=== PATIENT | female | born 1945 | race Hispanic/Latino ===

== ENCOUNTER 2017-10-26 11:30 | Inpatient (IN) | payer MEDICARE, OTHER ==
[2017-10-26 11:33] VITALS: BMI 23.2
[2017-10-26] MEDS ORDERED: Magnesium Sulfate 2 GM in Sodium Chloride 0.9% 100 ML IVPB ONE (11:36)
[2017-10-26] MEDS: Albuterol-Ipratrop 3 mg / 0.5 (3 ml) UD IH SCH ×4 (11:46→14:31)
--- NOTE | 2017-10-26 11:46 | ED PDOC ---
Arrival/HPI - General Time Seen by Provider: 10/26/17 11:35 Historian: Patient, EMS - History of Present Illness Narrative History of Present Illness (Text): 10/26/17 11:36 Desire Villanueva is a 71 year old female, whose past medical history includes COPD, hypertension, pneumonia, right shoulder rotator cuff surgery, former smoker and hyperlipidemia, who presents to the Emergency department via EMS complaining of shortness of breath since 3 days. As per ALS, patient was found at home on her home-oxygen at 90-92% stat. Patient was administered duoneb x1 and solu medrol by ALS. Patient states she has been experiencing shortness of breath for the past 3 days but the symptoms worsened since yesterday. Patient informs associated chest pain worsened with coughing with phlegm. Patient denies headache, fever, chills, nausea, vomiting, diarrhea, abdominal pain, dizziness, lightheadedness or any other complaints. PCP: Dr. Zimmer Time/Duration: < week Symptom Onset: Gradual Symptom Course: Worsening Activities at Onset: Light Context: Home Past Medical History - Provider Review Nursing Documentation Reviewed: Yes - Infectious Disease Hx of Infectious Diseases: None - Tetanus Immunization Tetanus Immunization: Unknown - Cardiac Hx Hypertension: Yes - Pulmonary Hx Chronic Obstructive Pulmonary Disease (COPD): Yes - Neurological Hx Neurological Disorder: No - HEENT Hx HEENT Disorder: No - Renal Hx Renal Disorder: No - Endocrine/Metabolic Hx Endocrine Disorders: No - Hematological/Oncological Hx Blood Disorders: No - Integumentary Hx Dermatological Disorder: No - Musculoskeletal/Rheumatological Hx Falls: No - Gastrointestinal Hx Gastrointestinal Disorders: Yes - Genitourinary/Gynecological Hx Genitourinary Disorders: No - Psychiatric Hx Psychophysiologic Disorder: No Hx Substance Use: No - Surgical History Hx Appendectomy: Yes Other/Comment: Left:artifical wrist, 2 benign breast tumor,RIGHT ROTATOR CUFF SX - Anesthesia Hx Anesthesia: Yes Hx Anesthesia Reactions: No Hx Malignant Hyperthermia: No - Suicidal Assessment Feels Threatened In Home Enviroment: No Family/Social History - Physician Review Nursing Documentation Reviewed: Yes Family/Social History: Unknown Family HX Smoking Status: Former Smoker Hx Alcohol Use: No Hx Substance Use: No Hx Substance Use Treatment: No Allergies/Home Meds Allergies/Adverse Reactions: Allergies latex Allergy (Intermediate, Uncoded 08/21/15 16:38) RASH pt stated that she had procedure done and had severe rash to bilateral arms Home Medications: Home Meds Medication Instructions Recorded Confirmed Simvastatin 10 mg PO HS 05/17/15 10/26/17 ALPRAZolam [Xanax] 0.25 mg PO DAILY 10/26/17 10/26/17 Albuterol/Ipratropium [Duoneb 3 1 ea IH PRN PRN 10/26/17 10/26/17 MG/3 Ml-0.5 MG/3 Ml 3 Ml] Aspirin [Aspirin Chewable] 81 mg PO DAILY 10/26/17 10/26/17 Clonidine HCl [Catapres] 0.1 mg PO DAILY 10/26/17 10/26/17 Fluticasone/Salmeterol 250/50 1 dsk IH PRN PRN 10/26/17 10/26/17 [Advair Diskus] Gabapentin [Neurontin] 300 mg PO TID 10/26/17 10/26/17 Meclizine [Meclizine*] 25 mg PO DAILY 10/26/17 10/26/17 Pramipexole Di-HCl [Pramipexole 0.25 mg PO DAILY 10/26/17 10/26/17 Dihydrochloride] Tiotropium [place] Inhaler 2.5 mcg INH DAILY 10/26/17 10/26/17 [Spiriva Inhalation Handihaler Device] Valsartan/Hydrochlorothiazide 160 mg PO DAILY 10/26/17 10/26/17 [Valsartan-Hctz 160-12.5 mg Tab] Review of Systems - Physician Review All systems were reviewed & negative as marked: Yes - Review of Systems Constitutional: Normal. absent: Fevers, Night Sweats Eyes: Normal ENT: Normal Respiratory: SOB, Cough (with phlegm ) Cardiovascular: Chest Pain Gastrointestinal: Normal. absent: Abdominal Pain, Diarrhea, Nausea, Vomiting Genitourinary Female: Normal Musculoskeletal: Normal Skin: Normal Neurological: Normal. absent: Dizziness Endocrine: Normal Hemo/Lymphatic: Normal Psychiatric: Normal Physical Exam Vital Signs Reviewed: Yes Vital Signs Temp Pulse Resp BP Pulse Ox 10/26/17 13:30 108 H 20 98/82 L 100 10/26/17 13:10 100 10/26/17 13:01 121 H 19 80/67 L 100 10/26/17 12:56 127 H 10/26/17 12:54 127 H 10/26/17 12:00 120 H 19 113/65 97 10/26/17 11:40 99.2 F 123 H 19 99/74 L 98 Temperature: Afebrile Blood Pressure: Hypotensive Pulse: Tachycardic Respiratory Rate: Normal Appearance: Positive for: Well-Appearing, Non-Toxic Pain Distress: None Mental Status: Positive for: Alert and Oriented X 3 - Systems Exam Head: Present: Atraumatic, Normocephalic Pupils: Present: PERRL Extroacular Muscles: Present: EOMI Conjunctiva: Present: Normal Mouth: Present: Moist Mucous Membranes Neck: Present: Normal Range of Motion Respiratory/Chest: Present: Wheezes (diffuse wheezing ), Decreased Breath Sounds (decreased breath sounds bilaterally ), Tachypneic, Other (decrease air entry ) Cardiovascular: Present: Normal S1, S2, Tachycardic. No: Murmurs Abdomen: Present: Normal Bowel Sounds. No: Tenderness, Distention, Peritoneal Signs Back: Present: Normal Inspection Upper Extremity: Present: Normal Inspection. No: Cyanosis, Edema Lower Extremity: Present: Normal Inspection. No: Edema Neurological: Present: GCS=15, CN II-XII Intact. No: Speech Normal (speaking in short sentences due to shortness of breath ) Skin: Present: Warm, Dry, Normal Color. No: Rashes Psychiatric: Present: Alert, Oriented x 3, Normal Insight, Normal Concentration Medical Decision Making ED Course and Treatment: 10/26/17 11:40 Impression: 71 year old female presents to the Emergency department for shortness of breath and associated chest pain. Differential Diagnosis included but are not limited to: COPD exacerbation r/o PNA r/o Influenza Plan: -- ABG -- VBG -- EKG -- Chest X-ray -- Blood Culture -- Influenza A B Stat -- Albuterol -- Toradol -- IV Fluids -- Reassess and disposition Prior Visits: Notes and results from previous visits were reviewed. On 12/20/15 patient was seen in the Emergency department for productive coughing with shortness of breath. Patient was admitted to the hospital for further observation. Progress Notes: 10/26/17 11:50 EKG: Ordered, reviewed, and independently interpreted the EKG. Rate : 123 BPM Rhythm : Sinus Tachycardia. Interpretation : No ST-segment elevations or depressions, no T-wave inversions, normal intervals. 10/26/17 12:34 Chest X-ray reviewed by radiologist, shows no active disease. 10/26/17 12:35 Patient continues to be shortness of breathe with wheezing. Lung exam unchanged with diffuse wheezing and decreased air entry. Speaking in short sentences. Will attempt BiPap. 10/26/17 13:01 Patient is improving on BiPap. Wheezing has decreased. Air intake is better. Blood pressure decreased but now has improved to baseline arrival blood pressure. ABG reviewed. Case was discussed with Dr. Zimmer who will place the patient under her service. - Critical Care Critical Care Minutes: 60 minutes - Lab Interpretations Lab Results: 10/26/17 11:40 10/26/17 11:40 Lab Results 10/26/17 12:47: Influenza Typ A,B (EIA) Pos for influenza a H 10/26/17 11:40: Sodium 134, Chloride 97 L, Potassium 3.9, Carbon Dioxide 28, Anion Gap 13, BUN 21, Creatinine 1.1, Est GFR ( Amer) 59, Est GFR (Non- Af Amer) 49, Random Glucose 103, Calcium 9.1, Lactate Dehydrogenase 663, Total Creatine Kinase 39, Troponin I 0.12 D, NT-Pro-B Natriuret Pep 5350 H 10/26/17 11:40: pO2 44, VBG pH 7.31 L, VBG pCO2 59.0, VBG HCO3 29.7 H, VBG Total CO2 31.5 H, VBG O2 Sat (Calc) 83.5 H, VBG Base Excess 2.0, VBG Potassium 3.8, Sodium 133.0, Chloride 96.0 L, Glucose 102, Lactate 1.8, FiO2 21.0, Venous Blood Potassium 3.8 10/26/17 11:40: WBC 9.5 D, RBC 4.33, Hgb 12.9, Hct 40.6, MCV 93.8, MCH 29.8, MCHC 31.8, RDW 13.3, Plt Count 231, MPV 11.6 H, Gran % 56.8, Lymph % (Auto) 28.1 , [place] % (Auto) 13.0 H, Eos % (Auto) 2.0, Baso % (Auto) 0.1, Gran # 5.38, Lymph # 2.7, [place] # 1.2 H, Eos # 0.2, Baso # 0.01 I have reviewed the lab results: Yes Interpretation: Abnormal lab values - RAD Interpretation Radiology Orders: 10/26/17 11:36 CHEST PORTABLE [RAD] Stat Food Services Director: Radiologist - EKG Interpretation Interpreted by ED Physician: Yes Type: 12 lead EKG - Medication Orders Current Medication Orders: Albuterol/Ipratropium (Duoneb 3 Mg/0.5 Mg (3 Ml) Ud) 3 ml IH Q15M CATINA Stop: 10/26/17 14:16 Sodium Chloride (Sodium Chloride 0.9%) 1,000 mls @ 100 mls/hr IV .Q10H CATINA Last Admin: 10/26/17 11:54 Dose: 100 mls/hr eMAR Start Stop Document 10/26/17 11:54 LA (Rec: 10/26/17 11:54 LA [id number]) Intravenous Solution Start Date 10/26/17 Start Time 11:54 Discontinued Medications Albuterol Sulfate (Albuterol 0.083% Inhal Eli (2.5 Mg/3 Ml) Ud) 2.5 mg IH STAT STA Stop: 10/26/17 13:35 Last Admin: 10/26/17 13:42 Dose: 2.5 mg Albuterol/Ipratropium (Duoneb 3 Mg/0.5 Mg (3 Ml) Ud) 3 ml IH Q15M CATINA Stop: 10/26/17 12:16 Last Admin: 10/26/17 12:17 Dose: 3 ml Magnesium Sulfate 2 gm/ Sodium (Chloride) 104 mls @ 102 mls/hr IVPB ONCE ONE Stop: 10/26/17 12:37 Last Admin: 10/26/17 11:53 Dose: 102 mls/hr eMAR Start Stop Document 10/26/17 11:53 LA (Rec: 10/26/17 11:54 LA [id number]) Intravenous Solution Start Date 10/26/17 Start Time 11:53 Ketorolac Tromethamine (Toradol) 30 mg IVP STAT STA Stop: 10/26/17 11:40 Last Admin: 10/26/17 11:46 Dose: 30 mg MAR Pain Assessment Document 10/26/17 11:46 LA (Rec: 10/26/17 11:48 LA [id number]) Pain Reassessment Is this a pain reassessment? No Sleep Is patient sleeping during reassessment? No Presence of Pain Presence of Pain Yes Pain Scale Used Pain Scale Used Numeric Location Pain Location Body Site Chest Description Description Sharp Intensity of Pain at present 10 IVP Administration Document 10/26/17 11:46 LA (Rec: 10/26/17 11:48 LA [id number]) Charges for Administration # of IVP Administrations 1 Re-Assess: JOEL Pain Assessment Document 10/26/17 12:46 SRE (Rec: 10/26/17 13:43 SRE [facility] [id number] Pain Reassessment Is this a pain reassessment? Yes Sleep Is patient sleeping during reassessment? No Presence of Pain Presence of Pain Yes Pain Scale Used Pain Scale Used Numeric Oseltamivir Phosphate (Tamiflu Cap) 75 mg PO STAT STA PRN Reason: Protocol Stop: 10/26/17 13:22 Last Admin: 10/26/17 13:31 Dose: 75 mg - Scribe Statement The provider has reviewed the documentation as recorded by the Nancieibdavid Mccurdy. All medical record entries made by the Nancieibdavid were at my direction and personally dictated by me. I have reviewed the chart and agree that the record accurately reflects my personal performance of the history, physical exam, medical decision making, and the department course for this patient. I have also personally directed, reviewed, and agree with the discharge instructions and disposition. Disposition/Present on Arrival - Present on Arrival Any Indicators Present on Arrival: No History of DVT/PE: No History of Uncontrolled Diabetes: No Urinary Catheter: No History Surgical Site Infection Following: None - Disposition Have Diagnosis and Disposition been Completed?: Yes Diagnosis: COPD (chronic obstructive pulmonary disease), Influenza Disposition: HOSPITALIZED Disposition Time: 13:00 Patient Plan: Admission Patient Problems: Current Active Problems Problem Status Onset COPD (chronic obstructive pulmonary disease) Acute Influenza Acute Condition: GUARDED
[2017-10-26] MEDS: Sodium Chloride 0.9% 1,000 ML IV SCH ×2 (11:54→22:17)
[2017-10-26 11:59] LABS: VENOUS BLOOD GAS PO2 44 mm/Hg (30-55); VENOUS BLOOD PH 7.31 (7.32-7.43)
[2017-10-26 12:00] LABS: BASO # 0.01 K/mm3 (0.0-2.0); BASO % 0.1 % (0.0-3.0); EOS # 0.2 (0.0-0.7); GRAN # 5.38 (1.4-6.5); GRAN % 56.8 % (50.0-68.0); HEMOGLOBIN 12.9 g/dL (12.0-16.0); LYMPH # 2.7 (1.2-3.4); LYMPH % 28.1 % (22.0-35.0); MEAN CELL VOLUME 93.8 fl (80.0-105.0); MEAN CORPUSCULAR HEMOGLOBIN 29.8 pg (25.0-35.0); MEAN CORPUSCULAR HGB CONC 31.8 g/dl (31.0-37.0); MEAN PLATELET VOLUME 11.6 fl (7.0-11.0); MONO # 1.2 (0.1-0.6); RBC 4.33 10^6/uL (3.5-6.1); RED CELL DISTRIBUTION WIDTH 13.3 % (11.5-14.5); WHITE BLOOD COUNT 9.5 10^3/ul (4.5-11.0)
[2017-10-26 12:10] LABS: CALCIUM 9.1 mg/dL (8.4-10.5)
[2017-10-26 12:21] LABS: TROPONIN I 0.12 ng/mL
--- NOTE | 2017-10-26 12:32 | RAD ---
HISTORY: sob r/o pna COMPARISON: 12/24/2015 FINDINGS: LUNGS: No active pulmonary disease. PLEURA: No significant pleural effusion identified, no pneumothorax apparent. CARDIOVASCULAR: Normal. OSSEOUS STRUCTURES: No significant abnormalities. VISUALIZED UPPER ABDOMEN: Normal. OTHER FINDINGS: None. IMPRESSION: No active disease.
[2017-10-26] MEDS ORDERED: Albuterol 0.083% Inhal Sol (2.5 mg/3 mL) UD IH STA (13:34)
[2017-10-26] MEDS ORDERED: Albuterol 0.083% Inhal Sol (2.5 mg/3 mL) UD ONE (13:42)
[2017-10-26 13:52] LABS: ARTERIAL BLOOD GAS HCO3 22.6 mmol/L (21-28); ARTERIAL BLOOD GAS HEMOGLOBIN 10.6 g/dL (11.7-17.4); ARTERIAL BLOOD GAS O2 CAPACITY 15.1 mL/dl (16-24); ARTERIAL BLOOD GAS O2 CONTENT 14.9 ML/dl (15-23); ARTERIAL BLOOD GAS O2 SAT 98.5 % (95-98); ARTERIAL BLOOD GAS PCO2 46 mm/Hg (35-45)
[2017-10-26] MEDS ORDERED: Oxycodone/Acetaminophen 5/325 mg Tab PO SCH (14:45)
[2017-10-26] MEDS ORDERED: Tiotropium 18 mcg Cap For Inhalation INH SCH (14:45)
[2017-10-26] MEDS ORDERED: Non Formulary Medication (Valsartan/Hydrochlorothiazide [Valsartan-Hctz 160-12.5 Mg Tab] 1 PO SCH (14:45)
[2017-10-26] MEDS ORDERED: Pneumococcal 23-Valent Vaccine IM ONE (15:05)
--- NOTE | 2017-10-26 18:18 | CARD ---
APPROVED REPORT EKG Measurement Heart [id number] <Conclusion> Sinus tachycardia Possible Left atrial enlargement Borderline ECG
[2017-10-26] MEDS: Levalbuterol 1.25 MG/3 ML Inhal Soln UD IH SCH (20:12)
[2017-10-26] MEDS ORDERED: Non Formulary Medication (Simvastatin [Simvastatin] 10 MG) PO SCH (22:00)
[2017-10-26] MEDS: MethylPREDNISolone 40 mg Vial IV SCH (22:18)
[2017-10-26] MEDS: Oxycodone/Acetaminophen 5/325 mg Tab PO SCH (23:17)
[2017-10-27] MEDS: Levalbuterol 1.25 MG/3 ML Inhal Soln UD IH SCH ×4 (02:16→19:49)
--- NOTE | 2017-10-27 05:14 | HP ---
HISTORY OF PRESENT ILLNESS: The patient is 71-year-old, known to me, was recently seen for bilateral leg rashes. She states she started cough and congestion 3 days ago, has been getting worse and today, she was to the point was not able to catch breath, so called ambulance and she was brought to emergency room. At home, her oxygen was 90% according to ALS. The patient states she was getting nebulizer treatment. In the field, she received IV Solu-Medrol and nebulizer treatment. No history of fever or chills. No dizziness. Does complain of feeling lightheaded, though also complain of some chest discomfort that get worse on coughing. The cough is productive. PAST MEDICAL HISTORY: Significant for: 1. COPD. 2. Hypertension. 3. Hyperlipidemia. 4. History of hot flashes. 5. Recent right shoulder rotator cuff surgery. 6. History of peptic ulcer disease. SOCIAL HISTORY: She is . She lives with her . Heavy smoker in the past. ALLERGIES: SHE IS ALLERGIC TO FLU VACCINE AND LATEX. MEDICATION AT HOME: She is on prednisone 20 mg daily. She is on Percocet as needed. She is on valsartan 160 daily, Spiriva daily, simvastatin 10 mg at bedtime, promethazine with codeine, Neurontin 300 three times a day, Advair 250/50 one puff twice a day, clonidine 0.1 daily, aspirin 81 daily, Xanax 0.25 daily. REVIEW OF SYSTEMS: Significant for cough, congestion, shortness of breath, and some chest discomfort. PHYSICAL EXAMINATION: GENERAL: She is awake, alert, oriented, mild shortness of breath. VITAL SIGNS: She is afebrile, pulse rate 97, respiration 20, blood pressure 114/69. LUNGS: Bilateral fair airflow with expiratory rhonchi bilaterally, diffuse. HEART: S1, S2 audible. ABDOMEN: Soft, nontender. No rebound. No guarding. NEUROLOGIC: The patient is awake, alert, oriented, able to communicate. Has limited mobility on the right rotator cuff because of recent surgery. Bilateral leg, no edema. LABORATORY EXAMINATION: WBC is 9.5, hemoglobin 12.9, hematocrit 40.6, platelet of 231. Chemistry, sodium 134, potassium 3.9, chloride 97, CO2 28, BUN 21, creatinine 1.1, blood sugar of 103. LFTs are within normal limits. BNP 5350. Flu test is positive. X-ray of chest is unremarkable. ASSESSMENT AND PLAN: 1. Viral syndrome. 2. Asthmatic bronchitis. 3. Bronchospasm. 4. Chronic obstructive pulmonary disease exacerbation. 5. History of hypertension. PLAN: We will start the patient on Tamiflu. Will continue nebulizer treatment. We will give her steroids; also resume her usual medication and we will follow up this patient in a.m. Cruz Zimmer MD
[2017-10-27] MEDS: Oxycodone/Acetaminophen 5/325 mg Tab PO SCH ×4 (06:10→23:34)
[2017-10-27] MEDS: MethylPREDNISolone 40 mg Vial IV SCH ×3 (06:10→21:14)
[2017-10-27] MEDS: Tiotropium 18 mcg Cap For Inhalation INH SCH (10:28)
[2017-10-27] MEDS: cefTRIAXone 1 gm 1 GM/100 ML BAG IVPB SCH (10:29)
[2017-10-27] MEDS: Azithromycin 500MG/NS 250ml 500 MG/250 ML BAG IVPB SCH (10:30)
[2017-10-27] MEDS ORDERED: Levalbuterol 0.63 MG/3 ML Inhal Soln UD IH PRN (12:22)
[2017-10-27] MEDS: Promethazine/Cod 6.25mg-10mg/5ml Syr UD PO PRN ×2 (12:53→21:23)
[2017-10-27] MEDS: Levalbuterol 0.63 MG/3 ML Inhal Soln UD IH SCH ×2 (13:24→19:49)
--- NOTE | 2017-10-27 19:13 | PN ---
DATE: SUBJECTIVE: The patient is a 71-year-old seen and examined, lying in bed, seemed to be comfortable, still have cough, congestion, shortness of breath, currently on BiPAP. PHYSICAL EXAMINATION VITAL SIGNS: She is afebrile. Pulse 95, respirations 22, blood pressure 177/82. LUNGS: Bilateral expiratory rhonchi, diffuse, scattered. HEART: S1, S2 audible. ABDOMEN: Soft, nontender. No rebound. No guarding. NEUROLOGIC: The patient is awake, alert, oriented, communicative, moves all extremities. LABORATORY EXAMINATION: BNP 5350. Flu test is positive. ASSESSMENT AND PLAN: 1. Viral syndrome. 2. Chronic obstructive pulmonary disease exacerbation. 3. Bronchospasm. 4. Hypertension. 5. Hyperlipidemia. Currently, patient is on clonidine. She is on losartan 100 mg daily. We will start her on Norvasc 5 mg daily. She is on IV steroid. She is on nebulizer treatment. She is on Tamiflu 75 b.i.d. We will continue her on Xopenex every 6 hours and every 12 or as needed. Cruz Zimmer MD
--- NOTE | 2017-10-27 20:50 | CON ---
DATE: 10/27/2017 PULMONARY CONSULTATION We were asked by the attending, Dr. Zimmer, roadway technician to evaluate and treat this 71-year-old woman who was admitted to [facility] with marked shortness of breath and deterioration in her pulmonary status, also cough, also testing positive for Influenza A. HISTORY OF PRESENT ILLNESS: The patient states that she started feeling worse in the last few days. She started feeling congested. She also complained of bilateral leg rashes. The cough and congestion produced yellow and green sputum. Her shortness of breath has increased markedly on the day of admission. She called an ambulance. Upon arrival of EMS, her pulse oximetry was 90. In the emergency room, she received Solu-Medrol nebulizer treatments. She denied fever. No dizziness. Positive productive cough. PAST MEDICAL HISTORY: Positive for chronic obstructive pulmonary disease, hypertension, and hyperlipidemia. SOCIAL HISTORY: The patient is a heavy smoker in the past, quit. No alcohol. No IV drug use. FAMILY HISTORY: HTN, CAD ALLERGIES: SHE IS ALLERGIC TO FLU VACCINE AND LATEX. HOME MEDICATIONS: Include prednisone 20 mg a day, Percocet, valsartan, Spiriva, promethazine with codeine, Neurontin, Advair, clonidine, and Xanax. REVIEW OF SYSTEMS: Conducted by reviewing all sources. RESPIRATORY: See history of present illness. CARDIOVASCULAR: No history of chest pain. No palpitations. GENITOURINARY: No dysuria or hematuria. GASTROINTESTINAL: No recent abdominal pain, vomiting, or diarrhea. The rest of the systems were reviewed and found to be negative. PHYSICAL EXAMINATION: GENERAL: She is awake, alert, in mild respiratory difficulty. VITAL SIGNS: Afebrile. Pulse is 98, respirations 20, blood pressure 114/69. HEAD, EARS, NOSE, AND THROAT: Atraumatic, normocephalic. NECK: Supple with no jugular vein distention. CARDIOVASCULAR: S1, S2. No S3. PULMONARY: Diminished breath sounds bilaterally with few rhonchi and expiratory wheezes. GASTROINTESTINAL: Soft and nontender. No organomegaly. : Within normal limits NEUROLOGIC: Limited at present time. SKIN: Clear with no skin rashes. No cyanosis. LABORATORY DATA: Influenza rapid test is positive for Influenza A. Her WBCs are 9.5, hemoglobin 12.9, platelet count 231,000, and her chemistries are normal. BNP is elevated at 5350. ASSESSMENT: 1. Influenza A disease. 2. Exacerbation of severe chronic obstructive pulmonary disease. 3. Bronchospasm. PLAN: The patient was started on Tamiflu as well as intravenous antibiotics. She was started on intravenous steroids and nebulizer treatment. Due to findings of respiratory insufficiency, she was placed on BiPAP which she feels is beneficial. We will continue with BiPAP for the present settings, continue his current antibiotics. I have personally reviewed her yesterday's chest x-ray, and it is completely clear. There are no infiltrates, no effusions, so there is no pneumonia. Cruzito Anglin MD MTDD
[2017-10-27] MEDS: Sodium Chloride 0.9% 1,000 ML IV SCH (21:13)
[2017-10-28] MEDS: Levalbuterol 0.63 MG/3 ML Inhal Soln UD IH SCH ×4 (01:03→19:33)
[2017-10-28] MEDS: Promethazine/Cod 6.25mg-10mg/5ml Syr UD PO PRN ×4 (04:43→23:32)
[2017-10-28] MEDS: Oxycodone/Acetaminophen 5/325 mg Tab PO SCH ×4 (05:23→23:29)
[2017-10-28] MEDS: MethylPREDNISolone 40 mg Vial IV SCH ×3 (05:23→21:06)
[2017-10-28] MEDS: Sodium Chloride 0.9% 1,000 ML IV SCH ×4 (06:53→20:06)
[2017-10-28] MEDS: Levalbuterol 1.25 MG/3 ML Inhal Soln UD IH SCH ×4 (07:23→19:35)
[2017-10-28] MEDS: Tiotropium 18 mcg Cap For Inhalation INH SCH (09:16)
[2017-10-28] MEDS: cefTRIAXone 1 gm 1 GM/100 ML BAG IVPB SCH (11:20)
[2017-10-28] MEDS: Azithromycin 500MG/NS 250ml 500 MG/250 ML BAG IVPB SCH (12:37)
--- NOTE | 2017-10-28 14:23 | PN ---
DATE: 10/28/2017 PULMONARY PROGRESS NOTE SUBJECTIVE: The patient was seen and examined at bedside. She is off BiPAP. She is still uncomfortable, coughing constantly with some shortness of breath even at rest and on minimal exertion. She is on antibiotics as well as antivirals, azithromycin, ceftriaxone, and oseltamivir. PHYSICAL EXAMINATION: VITAL SIGNS: Temperature 97.5, pulse 90, respirations 20. Her oxygen saturation was recorded on BiPAP earlier and was 100%. Blood pressure 170/85. HEAD: Normocephalic and atraumatic. NECK: Supple with no jugular vein distentions. CARDIOVASCULAR: S1 and S2. No S3. Regular. PULMONARY: Scattered coarse rhonchi. Prolonged expiration, end-expiratory wheezes. GASTROINTESTINAL: Soft, nontender. No organomegaly. EXTREMITIES: No edema. SKIN: Clear with no skin rashes, no cyanosis. NEUROLOGIC: No focal deficits. LABORATORY DATA: No new laboratory data. ASSESSMENT: 1. Exacerbation of severe chronic obstructive pulmonary disease. 2. Respiratory insufficiency. 3. Influenza A positive. 4. Bronchospasm. PLAN: The patient has improved slightly. I reviewed her chest x-ray, it is completely clear. There are no infiltrates. We will continue her current antibiotics and antivirals, continue with aerosol therapy and BiPAP. Cruziot Anglin MD
[2017-10-29] MEDS: Sodium Chloride 0.9% 1,000 ML IV SCH ×4 (00:08→19:45)
[2017-10-29] MEDS: Levalbuterol 0.63 MG/3 ML Inhal Soln UD IH SCH ×4 (01:02→21:31)
--- NOTE | 2017-10-29 01:05 | CON ---
DATE: 10/28/2017 The patient seen in room 275 bed 2. CHIEF COMPLAINT: Cough times several days. HISTORY OF PRESENT ILLNESS: This is a 71-year-old female with chronic obstructive lung disease, hypertension, smoker, asthma, arthritis, spastic colon who has had a right breast lumpectomy, right shoulder cuff surgery, appendectomy, who is ALLERGIC WITH INFLUENZA VACCINE, who is admitted now with generalized aches and pains and low grade fevers, cough. No abdominal pain, but she is having diarrhea and she was found to be influenza positive, Infectious Disease consultation is requested. REVIEW OF SYSTEM: Reveals the patient did not have any fevers, no chills. He is having shortness of breath, cough or cough is nonproductive. There is a pleuritic chest pain with it and no abdominal pain. There is diarrhea. No dysuria, frequency. PAST MEDICAL HISTORY: Significant for COPD, hypertension, smoker, asthma, arthritis, spastic colon. PAST SURGICAL HISTORY: Significant for right breast lumpectomy, right shoulder cuff, and appendectomy. ALLERGIES: THE PATIENT IS ALLERGIC TO INFLUENZA VACCINE. MEDICATIONS: At home include; the patient to be on prednisone, oxycodone, although the patient denies being on prednisone, clonidine, and aspirin. PHYSICAL EXAMINATION: GENERAL: The patient is in bed. VITAL SIGNS: Temperature of 98, heart rate of 108 on admission, respiratory rate of 21 and it was up to 22, and blood pressure is 178/80. HEENT: Unremarkable. NECK: Supple. LUNGS: Have decreased breath sounds. HEART: Normal S1, S2. ABDOMEN: Soft, nontender. No organomegaly. No rebound or guarding. No masses. LABORATORY EXAMINATION: Reveals the patient's white count of 9.5, hemoglobin of 12, platelets of 231. Chemistries reveals the patient has a BUN of 21, creatinine of 1.1. BNP is 5350 and influenza serology is positive. Microbiology reveals the blood cultures are no growth and has chest x-ray is negative and QTC is noted to be at 440. ASSESSMENT AND PLAN: This is a 71-year-old female with a chronic obstructive lung disease, hypertension, smoker, asthma, arthritis, spastic colon, with: 1. Sepsis with positive influenza A, although the chest x-ray is negative and the patient will check on the procalcitonin on Rocephin, Zithromax, and Tamiflu. We will check on the sputum culture and stool Clostridium difficile and toxin and urine for Legionella antigen and we will make further recommendations upon availability of initial results. Mario Coyle MD
[2017-10-29] MEDS: MethylPREDNISolone 40 mg Vial IV SCH ×3 (05:09→21:28)
[2017-10-29] MEDS: Oxycodone/Acetaminophen 5/325 mg Tab PO SCH ×4 (05:09→23:21)
[2017-10-29] MEDS: Promethazine/Cod 6.25mg-10mg/5ml Syr UD PO PRN ×2 (05:20→11:29)
[2017-10-29] MEDS: Levalbuterol 1.25 MG/3 ML Inhal Soln UD IH SCH ×3 (07:31→21:31)
[2017-10-29] MEDS: Tiotropium 18 mcg Cap For Inhalation INH SCH (09:36)
[2017-10-29] MEDS: cefTRIAXone 1 gm 1 GM/100 ML BAG IVPB SCH (09:38)
[2017-10-29] MEDS: Azithromycin 500MG/NS 250ml 500 MG/250 ML BAG IVPB SCH (10:50)
[2017-10-29 12:31] LABS: BASO # 0.03 K/mm3 (0.0-2.0); BASO % 0.3 % (0.0-3.0); GRAN # 9.53 (1.4-6.5); GRAN % 81.7 % (50.0-68.0); HEMOGLOBIN 10.1 g/dL (12.0-16.0); LYMPH # 0.8 (1.2-3.4); LYMPH % 7.2 % (22.0-35.0); MEAN CORPUSCULAR HGB CONC 30.2 g/dl (31.0-37.0); MEAN PLATELET VOLUME 11.2 fl (7.0-11.0); MONO # 1.3 (0.1-0.6); MONO % 10.8 % (1.0-6.0); RBC 3.48 10^6/uL (3.5-6.1); RED CELL DISTRIBUTION WIDTH 13.5 % (11.5-14.5); WHITE BLOOD COUNT 11.7 10^3/ul (4.5-11.0)
[2017-10-29 12:43] LABS: BLOOD UREA NITROGEN 17 mg/dL (7-21); CALCIUM 8.5 mg/dL (8.4-10.5); GFR AFRICAN-AMERICAN > 60; GFR NON-AFRICAN AMERICAN > 60
--- NOTE | 2017-10-29 13:03 | PN ---
DATE: 10/29/2017 PULMONARY PROGRESS NOTE SUBJECTIVE: The patient has had influenza and she was feeling congested. She has a history of COPD. She was seen by Dr. Delgadillo as an outpatient. She was short of breath and came into the hospital via ambulance with EMS. She was given corticosteroids and bronchodilators. She had a productive cough. PAST SURGICAL HISTORY: COPD as described above, hypertension, and hyperlipidemia. SOCIAL HISTORY: She was a heavy smoker, but finally quit. There is no other problems of note. No drug abuse. No travel history. No occupational exposure. ALLERGIES: SHE IS ALLERGIC TO FLU VACCINE AND LATEX. HOME MEDICATIONS: Include Percocet, valsartan, Spiriva, inhaled bronchodilator, codeine, Neurontin, Advair, clonidine, and Xanax. REVIEW OF SYSTEMS: Complete review of systems, she has COPD, she has multiple respiratory infections such that consistent with chronic bronchitis. She has no recent abdominal problems. She has been regularly by Dr. Delgadillo with no acute current problems. PHYSICAL EXAMINATION: VITAL SIGNS: Stable with a temperature of 98.6, respiratory rate 20, and blood pressure 120/70. HEENT: Normocephalic and atraumatic. NECK: Supple. No JVD. No lymphadenopathy. CARDIOVASCULAR: Regular rate and rhythm. S1 and S2 without murmur, gallop, or rub. PULMONARY: Scattered rales, rhonchi, and wheezes throughout. Both lung drummond decreased breath sounds at the bases. ABDOMEN: Soft. Bowel sounds normoactive without mass, guarding, rebound or organomegaly. EXTREMITIES: Reveal no clubbing, cyanosis or edema. NEUROLOGIC: Reveals no focal findings. Motor, sensory, and coordination normal. No lymphadenopathy is appreciated. No Homans' sign is appreciated. SIGNIFICANT STUDIES AND LABORATORY STUDIES: No infiltrates on chest x-ray. Laboratory studies show positive influenza A. White count 9,000, hemoglobin 12.9, and platelet count 231,000. BNP was 5350. Urine appears normal. EKG sinus tachycardia. No acute changes. ASSESSMENT AND PLAN: The patient was started on Tamiflu and antibiotics. She was given vigorous bronchodilator treatments with corticosteroids. She also received some BiPAP, as her physicians were afraid that her respiratory status would fail. She started improve slowly and became better in the immediate future. Today, she is feeling better still on the same medications. BiPAP was necessary. Antibiotic for concurrent infection. We will continue to evaluate and give her the appropriate, while she was here in the hospital. Tomorrow her private landscape crew member Dr. Delgadillo will return and he will be facts regarding her current status. We will be able to follow with her and make sure that things will improve and make sure the long-term abnormalities or sequelae from the acute bronchospasm and flu do not become apparent. He will be once again able to ascertain her general status since she is well-known to him in the past. Thank you for the opportunity to care for Ms. Desire Villanueva and we will follow closely with you. Billy Zelaya MD MTDD
--- NOTE | 2017-10-29 14:14 | PN ---
DATE: 10/29/2017 SUBJECTIVE: The patient is in bed, in no acute distress, nontoxic. The patient is still having cough and she has had no fevers. PHYSICAL EXAMINATION: VITAL SIGNS: Temperature is 98, blood pressure is 150/70, and respiratory rate of 18. HEENT: Unremarkable. NECK: Supple. LUNGS: Have decreased breath sounds. HEART: Normal S1 and S2. ABDOMEN: Soft and nontender. LABORATORY DATA: Reveals the patient's white count is 9.5, hemoglobin of 12, and platelets of 231. Chemistries reveals BUN of 21 and creatinine of 1.1. BNP is 5350. Procalcitonin is 0.13. Serology is noted to be positive for influenza. The patient had a chest x-ray, which was reported to be no active lung disease and review of orders reveals the patient to be on Tamiflu, ceftriaxone, and azithromycin. ASSESSMENT AND PLAN: A 71-year-old female with chronic obstructive lung disease, hypertension, smoker, asthma, arthritis, spastic colon, history of right breast lumpectomy and right shoulder cuff surgery, and appendectomy, was ALLERGIC TO INFLUENZA VACCINE. Admitted with generalized aches and pains and on this admission with: 1. Sepsis with positive influenza A. Negative chest x-ray, negative procalcitonin, currently on Tamiflu. We will discontinue the ceftriaxone with negative blood cultures and change the Zithromax to p.o. We will complete 5 days of Tamiflu and short course of Zithromax in this patient who is a long time smoker. Mario Coyle MD
--- NOTE | 2017-10-29 19:44 | PN ---
DATE: 10/29/2017 SUBJECTIVE: She is comfortable in bed, in no acute distress, respiratory distress improved. Her blood pressure is elevated 170 systolic. She did not have fever overnight. Shortness of breath has improved. Denies any chest pain, no cough with expectoration. Ambulating in the room. REVIEW OF SYSTEMS: As per HPI. Rest of 12-point review of systems reviewed and negative. PHYSICAL EXAMINATION GENERAL: Comfortable in bed, in no acute distress. VITAL SIGNS: Temperature 97.8, heart rate is 80 per minute, blood pressure 170/80, respiratory rate 20 per minute, and oxygen saturation 98% on oxygen by nasal cannula. HEENT: Pallor positive. NECK: No lymphadenopathy. CHEST: Air entry present and equal, bilateral rhonchi decreased on both sides, bilateral basilar crepitations. CARDIOVASCULAR: Tachycardia plus S1 and S2 normal. No murmur. No gallop. ABDOMEN: Soft and nontender. No hepatosplenomegaly. EXTREMITIES: No edema. [employer]: Alert and oriented x3. No focal sensory or motor deficit. SKIN: No petechiae, no rash. MEDICATIONS: Xanax 0.25 mg h.s. and p.r.n.; aspirin 81 mg daily; Lipitor 10 mg daily; Zithromax 250 mg daily; Catapres 0.1 mg p.o. b.i.d.; Neurontin 300 mg p.o. t.i.d.; hydrochlorothiazide 12.5 mg daily; Xopenex inhalation; Cozaar 100 mg daily; meclizine 25 mg daily; Solu-Medrol 40 mg IV q.8; Percocet p.r.n.; MiraLax; IV fluids 800 mL an hour; Spiriva inhalation. LABORATORY DATA: White count 11.7, hemoglobin 10.1, hematocrit 33.4, platelet count 184. Sodium 144, potassium 3.8, creatinine 0.7. ASSESSMENT: 1. Influenza A. 2. Chronic obstructive pulmonary disease exacerbation. 3. Anemia. 4. Leukocytosis. 5. Hypertension. PLAN: We will discontinue the IV fluid. Continue nebulizer and IV steroids. Xanax 0.25 mg q.6 hours p.r.n ordered. We will continue Lipitor for hypercholesterolemia. Continue antibiotic with Zithromax and Tamiflu. Ceftriaxone discontinued. ID consultation with Dr. Coyle requested, input appreciated. Pulmonary consultation appreciated. Mckenzie Ochoa MD
--- NOTE | 2017-10-29 19:48 | PN ---
DATE: 10/28/2017 HISTORY OF PRESENT ILLNESS: The patient is a 71-year-old female admitted to the hospital with increased shortness of breath and leg swelling. She was fount to have flu on throat strep. She is still short of breath. She is on IV antibiotic and IV steroid. Shortness of breath has decreased since admission. She also has dry cough. Hypertension and blood pressure controlled on current medications. She had recent right shoulder cuff surgery, no pain. Also, has peptic ulcer disease, no exacerbation. PAST MEDICAL HISTORY: Hypertension, COPD, hyperlipidemia, hot flashes, diabetes mellitus, peptic ulcer disease. PAST SURGICAL HISTORY: Rotator cuff surgery. SOCIAL HISTORY: , lives at home with her . PERSONAL HISTORY: Heavy smoker. No history of alcohol abuse. ALLERGIES: TO FLU VACCINE AND LATEX. HOME MEDICATIONS: Prednisone, Percocet, Losartan, Spiriva, Simvastatin, Neurontin 3 times a day, Advair, aspirin 81 mg daily, Xanax 2.5 mg daily. REVIEW OF SYSTEMS: As per HPI. Rest of 12-point review of systems reviewed negative. PHYSICAL EXAMINATION GENERAL: Mild respiratory distress. VITAL SIGNS: Respiratory rate 25 per minute, blood pressure 120/70, heart rate is 87 per minute and oxygen saturation 90% on O2 by nasal cannula. CHEST: Air entry present. Bilateral rhonchi present. Bilateral crepitations present. CARDIOVASCULAR: S1 and S2 normal, tachycardia plus. ABDOMEN: Soft and nontender. No hepatosplenomegaly. NEUROLOGIC: Awake, alert and oriented x3. No focal, sensory, motor deficits. SKIN: No petechiae, no rash. SPINE: Nontender. LABORATORY DATA: White count 11.7, hemoglobin 10, hematocrit and platelet count 184. Paraflu positive for influenza A. ASSESSMENT: 1. Chronic obstructive pulmonary disease exacerbation. 2. Hypertension. 3. Viral syndrome. 4. Flu influenza A. 5. Leukocytosis, monocytosis. 6. Anemia. PLAN: We will continue IV Solu-Medrol. Continue nebulizer. She is currently on Tamiflu 75 b.i.d. and Zithromax. We will get ID consultation with Dr. Coyle, Percocet p.r.n. for pain. We will continue Neurontin 300 mg p.o. t.i.d., Catapres 0.1 mg p.o. b.i.d., Lipitor 10 mg daily and Xanax 0.25 mg q. 6 hours p.r.n. for anxiety. Mckenzie Ochoa MD
[2017-10-30] MEDS: Levalbuterol 1.25 MG/3 ML Inhal Soln UD IH SCH ×3 (01:03→14:32)
[2017-10-30] MEDS: Sodium Chloride 0.9% 1,000 ML IV SCH (04:52)
[2017-10-30] MEDS: MethylPREDNISolone 40 mg Vial IV SCH ×3 (06:05→21:54)
[2017-10-30] MEDS ORDERED: Oxycodone/Acetaminophen 5/325 mg Tab PO PRN (06:29)
[2017-10-30] MEDS: Oxycodone/Acetaminophen 5/325 mg Tab PO PRN ×3 (06:43→20:24)
--- NOTE | 2017-10-30 06:50 | PN ---
DATE: 10/30/2017 PULMONARY NOTE SUBJECTIVE: The patient appears comfortable this morning. She is not short of breath at rest. PHYSICAL EXAMINATION VITAL SIGNS: Temperature is 98.0, pulse 96, respirations 18/20, blood pressure 145/73. Oxygen saturation on nasal cannula is 98%. HEENT: Normocephalic, atraumatic. No JVD. CARDIOVASCULAR: Positive S1, S2. No S3 gallop. LUNGS: Decreased breath sounds at the bases. [id number] rhonchi and wheezing bilaterally. EXTREMITIES: No clubbing, cyanosis or edema. Calves are nontender to palpation. GI: Abdomen is soft, nontender and nondistended. Bowel sounds are positive. SKIN: No acute rash. NEUROLOGIC: Limited at the present time. IMPRESSION: 1. Acute bronchitis. 2. Advanced chronic obstructive pulmonary disease. 3. Influenza A positivity. 4. Mild anemia. PLAN: The patient appears comfortable this morning. She is not short of breath at rest. She does state to feeling better this morning. On physical exam, there is still mild to moderate bronchospasm noted. I will continue the current nebulizer treatments and intravenous steroids for now. I will also add inhaled Pulmicort this morning. The patient is on antibiotic therapy - as per Infectious Disease. Input by Dr. Coyle is noted. There are no temperatures noted. On last laboratory exam, there is a very mild leukocytosis - probably secondary to the steroids. Initial white count was normal. Clinical status of the patient is certainly improved - compared to the initial presentation. I will discuss the above with Dr. Zimmer later this morning. Sebas Delgadillo MD MTDD
[2017-10-30] MEDS: Budesonide 0.5 mg/2 ml Inhal Susp UD IH SCH (09:11)
[2017-10-30] MEDS: Levalbuterol 0.63 MG/3 ML Inhal Soln UD IH SCH ×2 (09:11→14:33)
--- NOTE | 2017-10-30 09:23 | PN ---
DATE: 10/28/2017 HISTORY OF PRESENT ILLNESS: Ms. Villanueva is a 71-year-old female admitted to the hospital with bilateral lower extremity rash, which got worsened. She also developed shortness of breath with acute excerebration. She has a history of COPD. She was treated with IV Solu-Medrol nebulizer. No fever. No cough with expectoration. She also felt lightheaded. She has hypertension, blood pressure controlled on current medication. She also has peptic ulcer disease, fairly controlled with current medication. She has been heavy smoker in the past. PAST MEDICAL HISTORY: COPD, hypertension, hyperlipidemia, history of hot flashes, and peptic ulcer disease. PERSONAL HISTORY: Heavy smoker. No history of alcohol abuse. SOCIAL HISTORY: . Lives with her at home. ALLERGIES: ALLERGIC TO FLU VACCINE AND LATEX. HOME MEDICATIONS: Prednisone, Percocet, valsartan 160 mg daily, Spiriva, simvastatin 10 mg daily, Neurontin 300 mg 3 times a day, Advair 250/50, clonidine 0.1 mg daily, aspirin 81 mg daily, and Xanax 0.25 mg daily. REVIEW OF SYSTEMS: Cough, congestion, shortness of breath, bilateral lower extremity rashes. Rest of 12-point review of systems reviewed and negative. PHYSICAL EXAMINATION: GENERAL: Awake, alert, oriented, mild respiratory distress. VITAL SIGNS: Afebrile, temperature 98.7, heart rate 80 per minute, respirations 20 per minute, and blood pressure 110/70. CHEST: Clear bilateral, occasional rhonchi. No crepitation. HEART: S1 and S2 normal. No murmur or gallop. ABDOMEN: Soft and nontender. No rebound tenderness. No rigidity. No guarding. NEUROLOGIC: Awake, alert, and oriented x3. No sensory or motor deficit. EXTREMITIES: Right extremity, limited mobility due to surgery. Bilateral leg no edema. LABORATORY DATA: White count 9.5, hemoglobin 12.9, hematocrit 40.6, and platelet count 231, monocyte 13% elevated. Sodium 134, potassium 3.9, creatinine 1.9, BNP 5000. Positive for influenza A, serology. CURRENT MEDICATIONS: Xanax 0.25 mg at bedtime, aspirin 81 mg daily, Lipitor 10 daily, Zithromax daily, ceftriaxone 1 g daily, Catapres 0.1 mg p.o. b.i.d., Neurontin 300 mg p.o. b.i.d., Microzide 12.5 mg p.o. daily, Xopenex 3 times a day and p.r.n., meclizine 25 mg daily, Solu-Medrol 40 mg IV q.8 hours, Tamiflu 75 mg p.o. b.i.d., Percocet p.r.n., and IV fluid at 80 mL an hour. ASSESSMENT: 1. Flu. 2. Chronic obstructive pulmonary disease. 3. Hypertension. 4. Monocytosis. PLAN: We will continue Tamiflu. She is on azithromycin and ceftriaxone for community-required pneumonia. Continue Solu-Medrol at current doses and we will continue bronchodilators. Labs ordered for today CBC and BMP. Peripheral neuropathy, we will continue Neurontin 300 mg p.o. t.i.d. Pulmonary consultation appreciated, note reviewed. Mckenzie Ochoa MD
[2017-10-30 11:43] LABS: BASO # 0.02 K/mm3 (0.0-2.0); BASO % 0.2 % (0.0-3.0); GRAN # 7.13 (1.4-6.5); GRAN % 81.5 % (50.0-68.0); HEMOGLOBIN 9.3 g/dL (12.0-16.0); LYMPH # 0.7 (1.2-3.4); LYMPH % 8.5 % (22.0-35.0); MEAN CORPUSCULAR HEMOGLOBIN 29.3 pg (25.0-35.0); MEAN CORPUSCULAR HGB CONC 30.9 g/dl (31.0-37.0); MEAN PLATELET VOLUME 10.5 fl (7.0-11.0); MONO # 0.9 (0.1-0.6); MONO % 9.8 % (1.0-6.0); RBC 3.17 10^6/uL (3.5-6.1); RED CELL DISTRIBUTION WIDTH 13.3 % (11.5-14.5); WHITE BLOOD COUNT 8.8 10^3/ul (4.5-11.0)
--- NOTE | 2017-10-30 12:15 | RAD ---
HISTORY: abnormal breath sounds COMPARISON: 10/26/2017 FINDINGS: LUNGS: Mild chronic interstitial changes are seen PLEURA: No significant pleural effusion identified, no pneumothorax apparent. CARDIOVASCULAR: Normal. OSSEOUS STRUCTURES: No significant abnormalities. VISUALIZED UPPER ABDOMEN: Normal. OTHER FINDINGS: None. IMPRESSION: No active disease.
--- NOTE | 2017-10-30 12:43 | CP.PCM.PN ---
Subjective - Date & Time of Evaluation Date of Evaluation: 10/30/17 Time of Evaluation: 10:35 - Subjective Subjective: Comfortable, no fevers overnight. Objective - Vital Signs/Intake and Output Vital Signs (last 24 hours): Temp Pulse Resp BP Pulse Ox 97.9 F 96 H 19 126/68 98 10/30/17 12:00 10/30/17 12:00 10/30/17 12:00 10/30/17 12:00 10/30/17 06:00 Intake and Output: 10/30/17 10/30/17 06:59 18:59 Intake Total 1620 Output Total 950 Balance 670 - Medications Medications: Current Medications Alprazolam (Xanax) 0.25 mg PO HS [facility] PRN Reason: Protocol Stop: 11/02/17 22:01 Last Admin: 10/29/17 21:27 Dose: 0.25 mg Alprazolam (Xanax) 0.25 mg PO Q6 PRN; Protocol PRN Reason: Anxiety Stop: 11/05/17 12:01 Last Admin: 10/30/17 09:36 Dose: 0.25 mg Aspirin (Aspirin Chewable) 81 mg PO DAILY [facility] Last Admin: 10/30/17 09:35 Dose: 81 mg Atorvastatin Calcium (Lipitor) 10 mg PO DIN [facility] Last Admin: 10/29/17 17:54 Dose: 10 mg Azithromycin (Zithromax) 250 mg PO DAILY [facility] PRN Reason: Protocol Stop: 11/04/17 10:01 Last Admin: 10/30/17 09:36 Dose: 250 mg Benzonatate (Tessalon Perles) 200 mg PO TID PRN PRN Reason: Cough Last Admin: 10/30/17 06:43 Dose: 200 mg Budesonide (Pulmicort Respules) 0.5 mg IH [id number] [facility] Last Admin: 10/30/17 09:11 Dose: 0.5 mg Clonidine HCl (Catapres) 0.1 mg PO BID [facility] Last Admin: 10/30/17 09:36 Dose: 0.1 mg Gabapentin (Neurontin) 300 mg PO TID [facility] PRN Reason: Protocol Last Admin: 10/30/17 09:35 Dose: 300 mg Levalbuterol HCl (Xopenex) 1.25 mg IH [id number] [facility] Last Admin: 10/30/17 09:11 Dose: Not Given Levalbuterol HCl (Xopenex) 0.63 mg IH [id number] [facility] Last Admin: 10/30/17 09:11 Dose: 0.63 mg Levalbuterol HCl (Xopenex) 0.63 mg IH Q2H PRN PRN Reason: Shortness of Breath Last Admin: 10/28/17 11:41 Dose: 0.63 mg Losartan Potassium (Cozaar) 100 mg PO DAILY [facility] Last Admin: 10/30/17 09:35 Dose: 100 mg Meclizine HCl (Antivert) 25 mg PO DAILY [facility] Last Admin: 10/30/17 09:35 Dose: 25 mg Methylprednisolone (Solu-Medrol) 40 mg IV Q8 [facility] Last Admin: 10/30/17 06:05 Dose: 40 mg Oseltamivir Phosphate (Tamiflu Cap) 75 mg PO BID [facility] PRN Reason: Protocol Stop: 10/31/17 18:06 Last Admin: 10/30/17 09:35 Dose: 75 mg Oxycodone/Acetaminophen (Percocet 5/325 Mg Tab) 1 tab PO Q6H PRN PRN Reason: Pain, severe (8-10) Stop: 11/02/17 06:31 Last Admin: 10/30/17 06:43 Dose: 1 tab Pramipexole Dihydrochloride (Mirapex) 0.25 mg PO DAILY [facility] Last Admin: 10/30/17 09:35 Dose: 0.25 mg Tiotropium [place] (Spiriva) 18 mcg INH DAILY [facility] Last Admin: 10/29/17 09:36 Dose: 18 mcg - Labs Labs: 10/30/17 11:30 10/29/17 12:20 - Constitutional Appears: Non-toxic - Head Exam Head Exam: NORMAL INSPECTION - Respiratory Exam Respiratory Exam: Decreased Breath Sounds - Cardiovascular Exam Cardiovascular Exam: +S1, +S2 - GI/Abdominal Exam GI & Abdominal Exam: Soft. absent: Tenderness Assessment and Plan - Assessment and Plan (Free Text) Plan: Assessment Sepsis due to Influenza A systemic viral illness COPD significant smoking history HTN S/P appendectomy S/P right breast lumpectomy Plan Continue Tamiflu and Zithromax to complete 5 days of therapy
--- NOTE | 2017-10-30 13:06 | PN ---
DATE: SUBJECTIVE: The patient is 71-year-old, seen and examined. She still has cough, congestion, wheezing better than yesterday, holding her pulse ox around 98 with nasal cannula. PHYSICAL EXAMINATION: VITAL SIGNS: She is afebrile, pulse 60, respirations 20, blood pressure 162/86. LUNGS: Bilateral expiratory rhonchi, most pronounced posteriorly. HEART: S1, S2 audible. ABDOMEN: Soft, nontender. No rebound, no guarding. NEUROLOGIC: The patient is awake, alert, oriented, communicative. LABORATORY DATA: WBC 8.8, hemoglobin 9.3, hematocrit 30.1, platelet of 160. Chemistry, sodium 144, potassium 3.8, chloride 105, CO2 28, BUN 17, creatinine 0.7, blood sugar of 109, positive for influenza. ASSESSMENT: 1. Chronic obstructive pulmonary disease exacerbation. 2. Hypertension. 3. Asthmatic bronchitis. 4. Upper respiratory tract infection, positive for influenza A. 5. Hypertension. 6. Generalized osteoarthritis, recent right rotator cuff surgery. PLAN: We will discontinue IV fluid, discontinued telemetry. Continue her on aspirin, clonidine. She is on losartan and statins. We will continue that. I will discontinue her hydrochlorothiazide. She is on analgesic as needed. She is on methylprednisolone 40 mg q. 8 h. She is on Tamiflu. We will continue on that. Continue on Xopenex and Zithromax. We will follow up this patient in a.m. TCU evaluation has been requested. She needs slow taper down because she on previous years, her bronchospasm lasted for long time. She will need slow taper down and need to be in TCU for close monitoring. Cruz Zimmer MD
[2017-10-30] MEDS: Tiotropium 18 mcg Cap For Inhalation INH SCH (13:42)
--- NOTE | 2017-10-30 19:27 | CARD ---
APPROVED REPORT EXAM: Two-dimensional and M-mode echocardiogram with Doppler and color Doppler. INDICATION Dyspnea 2D DIMENSIONS Left Atrium (2D)3.1 (1.6-4.0cm)IVSd0.9 (0.7-1.1cm) LVDd4.0 (3.9-5.9cm)PWd1.0 (0.7-1.1cm) LVDs2.2 (2.5-4.0cm)FS (%) 43.8 % LVEF (%)75.6 (>50%) M-Mode DIMENSIONS Aortic Root2.40 (2.2-3.7cm)Aortic Cusp Exc.1.70 (1.5-2.0cm) Aortic Valve AoV Peak [id number]/Rohit Peak GR.9mmHg Mitral Valve E/A ratio0.0 TDI E/Lateral E'0.0E/Medial E'0.0 Tricuspid Valve TR Peak [id number] [id number] Peak Gr.35mmHg [id number] LEFT VENTRICLE The left ventricle is normal size. There is normal left ventricular wall thickness. The left ventricular function is normal.EF-65% There is normal LV segmental wall motion. Transmitral Doppler flow pattern is Grade III-reversible restrictive diastolic dysfunction. There is no ventricular septal defect visualized. There is no left ventricular aneurysm. There is no mass noted in the left ventricle. RIGHT VENTRICLE The right ventricle is normal size. There is normal right ventricular wall thickness. The right ventricular systolic function is normal. ATRIA The left atrium size is normal. The right atrium size is normal. The interatrial septum is intact with no evidence for an atrial septal defect. AORTIC VALVE The aortic valve is calcified but opens well. The aortic valve is moderately sclerotic. There is trace aortic regurgitation. There is no aortic valvular stenosis. There is no aortic valvular vegetation. MITRAL VALVE The mitral valve is thickened but opens well. Mitral regurgitation is mild. There is no mitral valve stenosis. There is no evidence of mitral valve prolapse. TRICUSPID VALVE The tricuspid valve leaflets are thickened , but open well. There is mild to moderate tricuspid regurgitation.RVSP-45 mmof Hg. There is no tricuspid valve stenosis. There is no tricuspid valve prolapse or vegetation. PULMONIC VALVE The pulmonary valve is normal in structure. There is trace pulmonic valvular regurgitation. There is no pulmonic valvular stenosis. GREAT VESSELS The aortic root is normal in size. The ascending aorta is normal in size. The pulmonary artery is normal. The IVC is normal in size and collapses >50% with inspiration. PERICARDIAL EFFUSION There is no pleural effusion. There is no pericardial effusion. <Conclusion> Normal chamber Size. EF-65% There is trace aortic regurgitation. Mitral regurgitation is mild. There is mild to moderate tricuspid regurgitation.RVSP-45 mmof Hg. No Vegetation or thrombus noted.
[2017-10-31] MEDS: Oxycodone/Acetaminophen 5/325 mg Tab PO PRN ×3 (01:57→18:08)
[2017-10-31] MEDS: Levalbuterol 0.63 MG/3 ML Inhal Soln UD IH SCH ×4 (02:59→21:12)
--- NOTE | 2017-10-31 03:25 | CON ---
DATE: 10/30/2017 The patient is in room 275, bed 2. REASON FOR CONSULTATION: Shortness of breath, COPD, hypertension, hyperlipidemia. HISTORY OF PRESENT ILLNESS: Patient is a 71-year-old female admitted with history that 5 days ago patient started having cough with expectoration, sometimes greenish, sometime yellow expectoration, and next day she started getting severe shortness of breath. Shortness of breath present at rest. Denied any chest pain or palpitation. Patient denies any prior history of cardiac disease. Patient is known to have COPD since last 4 years and also has a history of high blood pressures in last 4 years, hyperlipidemia, history of peptic ulcer disease. PAST MEDICAL HISTORY: Significant for COPD, hypertension, hyperlipidemia, peptic ulcer disease. PAST SURGICAL HISTORY: Patient had a left wrist surgery, left breast benign growth was removed. She had appendectomy, also cyst from the ovary was removed. Patient has a right shoulder replacement. PERSONAL HISTORY: She used to smoke 4 to 5 cigarettes a day, stopped 5 years ago. Drinks socially. ALLERGIES: PATIENT IS ALLERGIC TO FLU SHOT AND LATEX. FAMILY HISTORY: Not significant. MEDICATIONS: At home, she was on prednisone 20 daily, valsartan 160 daily, __2:52___, simvastatin 10 mg daily, Neurontin 300 mg three times a day, Advair 250/50 one puff twice a day, clonidine 0.1 daily, aspirin 81 daily, Xanax 0.25 daily. REVIEW OF SYSTEMS: All the system reviewed positive mentioned in the history otherwise negative. PHYSICAL EXAMINATION VITAL SIGNS: Blood pressure 126/68, respirations 19, pulse 96, temperature 97.9. HEENT: Head is normocephalic. Eyes; pupils are normal. Conjunctivae slightly pale. NECK: JVP low. Carotids are equal. THORAX: AP diameter normal. LUNGS: No rales. Patient had distant lung sounds. CARDIOVASCULAR: S1 and S2. ABDOMEN: Soft. No tenderness. No organomegaly. Bowel sounds are normal. EXTREMITIES: No clubbing. No cyanosis. LABORATORY DATA: WBC 8.8, hemoglobin 9.3, hematocrit 30.1, platelet 160. Sodium 144, potassium 3.8, BUN 14, creatinine 0.7, troponin 0.12, that was on 10/26/2017, PT 11.4, INR 1.04, PTT 41.9, D-Dimer 2.50. EKG, sinus tachycardia around 123 per minute on admission, possible left atrium enlargement, prominent peak suggestive of chronic lung disease, but now the heart rate is around 80 to 90. Chest x-ray, some chronic interstitial changes. NT-proB natriuretic peptide 5350. DIAGNOSES: Exacerbation of chronic obstructive pulmonary disease, respiratory tract infection, hypertension, hyperlipidemia, history of peptic ulcer disease, anemia. Patient already had echocardiogram on 10/30/2017 which showed normal chamber sizes, ejection fraction of 65%, trace aortic regurgitation, mild mitral regurgitation, [id number] tricuspid regurgitation, RVSP 45 mmHg suggestive of mild pulmonary hypertension. PLAN: Patient is on meclizine 25 mg daily, aspirin 81 mg daily, clonidine 0.1 b.i.d., losartan 100 mg daily, Lipitor 10 mg daily, gabapentin 300 mg p.o. three times a day, Xopenex nebulizer therapy, azithromycin 250 mg p.o. daily. Patient is being seen pulmonary by Dr. Delgadillo. Patient on methylprednisolone 40 mg IV q. 8 hours We will continue present therapy and when the patient's pulmonary status got better, then we can do IV Lasix stress test for further evaluation of the cardiac status. Right now, cardiac status seems to be stable and we will continue present therapy. Continue pulmonary therapy as per Dr. Delgadillo. Although natriuretic proB is elevated, clinically no evidence of CHF. Echo showed LV normal systolic function with EF of 65% and mild pulmonary hypertension with RVSP 45 mmHg. We will monitor with you and follow with you. Rey Burch MD
[2017-10-31] MEDS: MethylPREDNISolone 40 mg Vial IV SCH (06:29)
[2017-10-31] MEDS: Levalbuterol 1.25 MG/3 ML Inhal Soln UD IH SCH ×2 (07:41→21:23)
[2017-10-31] MEDS: Budesonide 0.5 mg/2 ml Inhal Susp UD IH SCH (07:42)
[2017-10-31 07:55] LABS: TROPONIN I 0.03 ng/mL
--- NOTE | 2017-10-31 08:04 | PN ---
DATE: 10/31/2017 PULMONARY NOTE SUBJECTIVE: The patient appears comfortable this morning. She is not short of breath at rest. PHYSICAL EXAMINATION: VITAL SIGNS: (Last noted in the computer): Temperature is 97.1, pulse 87, respirations 19, blood pressure 181/90. Oxygen saturation on nasal cannula is 98%. HEENT: Normocephalic, atraumatic. No JVD. CARDIOVASCULAR: Positive S1, S2. No S3 gallop. LUNGS: Improved breath sounds at the bases. Much less rhonchi. Much less wheezing. EXTREMITIES: No clubbing, cyanosis or edema. Calves are nontender to palpation. GI: Abdomen is soft, nontender and nondistended. Bowel sounds are positive. SKIN: No acute rash. NEUROLOGIC: Exam limited at the present time. IMPRESSION: 1. Acute bronchitis. 2. Advanced chronic obstructive pulmonary disease. 3. Influenza A positivity. 4. Mild anemia. PLAN: The patient appears much more comfortable this morning. She is not short of breath at rest. She does state to feeling better. On physical exam, there is certainly less bronchospasm noted. I will continue the current nebulizer treatments and decrease the intravenous steroids this morning. There is no significant alveolar-arterial gradient. Oxygen saturation on nasal cannula is 98%. The patient also remains on antibiotic therapy - as per Infectious Disease. Input by Dr. Coyle is noted. The patient is definitely clinically improved this morning. She is advised to be out of bed as much as possible. I will discuss the above with the attending physician. Sebas Delgadillo MD [facility]
[2017-10-31 08:30] VITALS: PULSE 83
[2017-10-31] MEDS: Tiotropium 18 mcg Cap For Inhalation INH SCH (11:22)
[2017-10-31] MEDS: MethylPREDNISolone 40 mg Vial IVP SCH ×2 (11:26→21:02)
--- NOTE | 2017-10-31 14:49 | PN ---
DATE: 10/31/2017 LOCATION: The patient is in room 574, bed 1. REASON FOR CONSULTATION: Shortness of breath, COPD, hypertension, hyperlipidemia. SUBJECTIVE: The patient still has cough and complaining of shortness of breath. Denies any chest pain or palpitation. PHYSICAL EXAMINATION: VITAL SIGNS: Blood pressure 156/90, respirations 24, pulse 83, temperature 97.8. HEENT: Head is normocephalic. Eyes: Pupils are normal. Conjunctivae slightly pale. NECK: JVP low. Carotids are equal. THORAX: AP diameter normal. LUNGS: The patient's wheezing and rhonchi is less as compared to yesterday. CARDIOVASCULAR: S1 and S2. ABDOMEN: Soft. No tenderness. No organomegaly. EXTREMITIES: No clubbing. No cyanosis. LABORATORY DATA: WBC 8.8, hemoglobin 9.3, hematocrit 30.1, platelet 160. Sodium 144, potassium 3.8, BUN 17, creatinine 0.7, troponin 0.03, on 10/26/2017, troponin was 0.12. The patient TSH less than 0.02, cholesterol 119, HDL 65, LDL 36, triglycerides 82. NT-proB natriuretic peptide 5350. DIAGNOSES: Exacerbation of chronic obstructive pulmonary disease, respiratory tract infection, hypertension, hyperlipidemia, history of peptic ulcer disease, anemia. Echocardiogram on 10/30/2017 showed normal chamber sizes, ejection fraction normal 65%, trace aortic regurgitation, mild mitral regurgitation, [id number] tricuspid regurgitation, right ventricular systolic pressure 45 mmHg, suggestive of mild pulmonary hypertension. No evidence of congestive heart failure at present. Since blood pressure is elevated, we will increase clonidine dose to 0.2 b.i.d., Lipitor 10 mg daily, aspirin 81 mg daily, meclizine 25 p.o. daily, Neurontin 300 t.i.d., Spiriva 18 mcg, INH daily, Xopenex hand nebulizer therapy, azithromycin 250 mg p.o. daily, losartan 100 mg daily. Since the patient's TSH is low, we will repeat TSH, T3 and free T4, and we will monitor with you and follow with you. Rey Burch MD [facility] # [id number]
--- NOTE | 2017-10-31 16:44 | IP.NPCORE ---
COPD Progress Note - COPD Progress Note Plan to assess at outpatient follow up: Yes Symptoms:: Increase in Dyspnea, Cough Initial CXR:: negative Date:: 11/26/17 Time:: 11:35 Oxygen Saturation/Pulse Oximetry:: 99 ABG Not Indicated (Symptoms Improved): Yes Nebulizers Q2-4 hrs:: Duonebs/Albuterol Therapy Antibiotics (Name/Dose/Frequency):: zithromax po 250 mg daily Antibiotics Not Indicated: No Systemic Steroids w/ methylprednisolone Name/Dose/Frequency:: solumedrol 40 mg iv q12 Oxygen Delivery Method: Nasal Cannula Oxygen Flow Rate: 3 Smoking cessation counseling all stages copd exacerbation: No (non smoker)
[2017-10-31 18:52] VITALS: BP 143/80; RESP 18; TEMP 99; O2SAT 97
--- NOTE | 2017-11-01 10:11 | DS ---
HISTORY OF PRESENT ILLNESS: The patient is a 71-year-old, seen and examined, sitting in chair, seems to be comfortable, still has persistent cough with wheezing. No nausea or vomiting. No diarrhea. PHYSICAL EXAMINATION: VITAL SIGNS: She is afebrile, pulse 101, respirations 18, and blood pressure 166/90. LUNGS: Bilateral expiratory rhonchi, occasional crackles. HEART: S1 and S2 audible. ABDOMEN: Soft and nontender. No rebound. No guarding. NEUROLOGIC: The patient is awake, alert, oriented, able to communicate. LABORATORY DATA: Her TSH is suppressed 0.02; however, T3 and T4 are not available. Flu test is positive. ASSESSMENT: 1. Chronic obstructive pulmonary disease exacerbation. 2. Viral syndrome secondary to flu. 3. Hypertension. 4. Hyperlipemia. 5. Degenerative disk disease in cervical area. PLAN: The patient's T3 and T4 have been requested by laundry equipment operator. We will continue the patient on clonidine, losartan, Mirapex, and gabapentin. She is on Xopenex. We will continue on Zithromax. The patient has been referred to TCU and will be transferred to [facility]. Cruz Zimmer MD
== END 2017-10-31 22:03 | DRG 192 ==
LOC: ED 11:30 → ERH 13:00 → 2RSO 15:13 → 5RSO 10-30 22:21
PROVIDERS: ADMIT Internal Medicine; ATTEND Internal Medicine
PROC: 5A09457 Assistance with Respiratory Ventilation, 24-96 Consecutive Hours, Continuous Positive Airway Pressure (ICD-10-PCS; principal; 2017-10-26)
PROC: 3E0F7GC Introduction of Other Therapeutic Substance into Respiratory Tract, Via Natural or Artificial Opening (ICD-10-PCS; 2017-10-26)
DX: J44.1 Chronic obstructive pulmonary disease with (acute) exacerbation (principal); J10.1 Influenza due to other identified influenza virus with other respiratory manifestations; J20.9 Acute bronchitis, unspecified; J44.0 Chronic obstructive pulmonary disease with (acute) lower respiratory infection; E11.42 Type 2 diabetes mellitus with diabetic polyneuropathy; D64.9 Anemia, unspecified; E78.5 Hyperlipidemia, unspecified; I10 Essential (primary) hypertension; M50.30 Other cervical disc degeneration, unspecified cervical region; D72.821 Monocytosis (symptomatic); F17.210 Nicotine dependence, cigarettes, uncomplicated; K58.9 Irritable bowel syndrome, unspecified; Z88.7 Allergy status to serum and vaccine; Z79.82 Long term (current) use of aspirin; Z87.11 Personal history of peptic ulcer disease; Z96.611 Presence of right artificial shoulder joint

== ENCOUNTER 2017-10-31 21:46 | Inpatient (IN) | payer OTHER ==
[2017-10-31] MEDS ORDERED: Oxycodone/Acetaminophen 5/325 mg Tab PO SCH (22:45)
[2017-10-31] MEDS ORDERED: Levalbuterol 0.63 MG/3 ML Inhal Soln UD IH PRN (22:51)
[2017-11-01] MEDS: Oxycodone/Acetaminophen 5/325 mg Tab PO PRN ×4 (00:51→18:19)
[2017-11-01 03:08] VITALS: BMI 24.4
[2017-11-01] MEDS: MethylPREDNISolone 40 mg Vial IVP SCH ×2 (05:54→17:05)
[2017-11-01] MEDS: Budesonide 0.5 mg/2 ml Inhal Susp UD IH SCH ×2 (07:10→21:11)
[2017-11-01] MEDS: Arformoterol 15 mcg/2 ml Inh Sol IH SCH ×2 (07:10→21:11)
--- NOTE | 2017-11-01 07:45 | PN ---
DATE: 11/01/2017 PULMONARY NOTE SUBJECTIVE: The patient appears comfortable this morning. She is not short of breath at rest. PHYSICAL EXAMINATION VITAL SIGNS: Last temperature recorded 97.8, pulse 65, respirations 18, blood pressure 168/81. Oxygen saturation on nasal cannula is 99%. HEENT: Normocephalic, atraumatic. No JVD. CARDIOVASCULAR: Positive S1, S2. No S3 gallop. LUNGS: Mild bilateral rhonchi. No wheezing this morning. EXTREMITIES: No clubbing, cyanosis or edema. Calves are nontender to palpation. GI: Abdomen is soft, nontender and nondistended. Bowel sounds are positive. SKIN: No acute rash. NEUROLOGIC: Limited at the present time. IMPRESSION: 1. Acute bronchitis. 2. Advanced chronic obstructive pulmonary disease. 3. Influenza A positivity. 4. Mild anemia. PLAN: The patient appears comfortable this morning. She is not short of breath at rest. She does state to feeling better overall. On physical exam, her bronchospasm continues to slowly resolve. In addition, the oxygen saturation on nasal cannula is now 99%. I will continue the current nebulizer treatments and current intravenous steroids (decreased yesterday) for now. The patient also remains on antibiotic therapy. There are no temperatures noted. Clinical status of the patient is certainly improved - compared to the initial presentation. The patient is now on the transitional unit - where she will participate with physical therapy. I will discuss the above with Dr. Zimmer. Sebas Delgadillo MD [facility]
[2017-11-01] MEDS: Tiotropium 18 mcg Cap For Inhalation INH SCH (12:00)
[2017-11-01] MEDS: Levalbuterol 0.63 MG/3 ML Inhal Soln UD IH SCH ×3 (13:20→21:12)
--- NOTE | 2017-11-02 00:35 | HP ---
HISTORY OF PRESENT ILLNESS: The patient is a 71-year-old who came to Emergency Room because increasing cough and congestion. She was found to have bilateral harsh wheezing, shortness of breath and hypoxia, was given IV steroids and nebulizer treatment with significant improvement and was transferred to TCU yesterday. PAST MEDICAL HISTORY: Significant for: 1. Hypertension. 2. Vertigo. 3. COPD. 4. Post menopausal syndrome with hot flashes. 5. Hyperlipidemia. ALLERGIES: SHE IS ALLERGIC TO INFLUENZA VACCINE. MEDICATIONS AT HOME: She is on prednisone 20 mg daily, Percocet as needed, valsartan 160 daily, Spiriva 1 inhaler daily, simvastatin 10 mg daily, and promethazine with codeine 1 teaspoon q.6 hours. SOCIAL HISTORY: She is , lives with her , and used to be heavy smoker. PHYSICAL EXAMINATION: GENERAL: She is awake, alert, oriented, and communicative. VITAL SIGNS: The patient is afebrile, pulse 76, respirations 22, and blood pressure 120/66. LUNGS: Bilateral fair airflow. Bilateral expiratory rhonchi with harsh wheezing. HEART: S1 and S2 audible. ABDOMEN: Soft and nontender. No rebound. No guarding. NEUROLOGIC: She is awake, alert, oriented, and communicative. LABORATORY DATA: There is no new lab available today. ASSESSMENT: 1. Chronic obstructive pulmonary disease exacerbation. 2. Viral syndrome with influenza infection. 3. Hypertension. 4. Hyperlipidemia. 5. Diarrhea. PLAN: I will discontinue Zithromax. Continue on Tamiflu. I will continue nebulizer treatment. Continue IV steroid. I will start her on Phenergan With Codeine. Cruz Zimmer MD
[2017-11-02] MEDS: Levalbuterol 0.63 MG/3 ML Inhal Soln UD IH SCH ×4 (02:38→20:14)
[2017-11-02] MEDS: Oxycodone/Acetaminophen 5/325 mg Tab PO PRN ×2 (06:36→18:43)
[2017-11-02] MEDS: MethylPREDNISolone 40 mg Vial IVP SCH ×2 (06:40→18:42)
[2017-11-02] MEDS: Budesonide 0.5 mg/2 ml Inhal Susp UD IH SCH ×2 (07:31→20:15)
[2017-11-02] MEDS: Arformoterol 15 mcg/2 ml Inh Sol IH SCH ×2 (07:31→20:14)
--- NOTE | 2017-11-02 09:06 | CON ---
DATE: 11/01/2017 LOCATION: The patient is in room 317, bed 1. REASON FOR CONSULTATION: Shortness of breath, COPD, hypertension, hyperlipidemia, deconditioning. HISTORY OF PRESENT ILLNESS: Patient is a 71-year-old female, was admitted to the medical floor with cough and expectoration and shortness of breath, found to have exacerbation of her chronic COPD, also found to have bronchitis and influenza A positive. Patient was treated on medical floor. Now, she is admitted to Transitional Care Unit for deconditioning and physical therapy. Patient still states she has cough and she gets shortness of breath on exertion. At rest, she does not have any shortness of breath. Denied chest pain or palpitation. PAST MEDICAL HISTORY: Positive for COPD since last 4 years, hypertension, hyperlipidemia, peptic ulcer disease. PAST SURGICAL HISTORY: Patient had left wrist surgery, left breast benign growth was removed, appendectomy, cyst removed from the ovary, and right shoulder replacement. PERSONAL HISTORY: Used to smoke 4 to 5 cigarettes a day, stopped 5 years ago. Drinks socially. ALLERGIES: PATIENT IS ALLERGIC TO FLU SHOT AND THE LATEX. FAMILY HISTORY: Not significant. HOME MEDICATIONS: Patient at home was taking prednisone 20 mg daily, valsartan 160 mg daily, simvastatin 10 mg daily, Neurontin 300 mg three times a day, Advair 250/50 one puff twice a day, clonidine 0.1 daily, aspirin 81 daily, Xanax 0.25 daily. REVIEW OF SYSTEMS: All the system reviewed, positive mentioned in the history, otherwise negative. PHYSICAL EXAMINATION VITAL SIGNS: Blood pressure 150/66, early blood pressure of 120/66, respirations 18, pulse 68, temperature 98.7. HEENT: Head is normocephalic. Eyes: Pupils are normal. Conjunctivae slightly pale. NECK: JVP low. Carotids are equal. THORAX: AP diameter normal. LUNGS: The patient has rhonchi. CARDIOVASCULAR: S1 and S2. ABDOMEN: Soft. No tenderness. No organomegaly. EXTREMITIES: No clubbing. No cyanosis. LABORATORY DATA: Showed WBC 8.8, hemoglobin 9.3, hematocrit 31.1, platelet 160. Sodium 144, potassium 3.8, BUN 17, creatinine 0.7. Troponin negative. Cholesterol 119, HDL 65. Chest x-ray showed chronic interstitial changes. EKG showed on admission, sinus tachycardia, later on patient was maintaining normal heart rate, sinus rhythm, possible left atrium enlargement, prominent P suggestive of chronic lung disease. DIAGNOSES: Acute exacerbation of severe chronic obstructive pulmonary disease, bronchitis, influenza A positive, hypertension, hyperlipidemia, history of peptic ulcer disease, anemia. Echocardiogram on 10/30/2017 showed normal chamber sizes, normal left ventricular systolic function with normal left ventricular ejection fraction of 65%, trace aortic regurgitation, mild mitral regurgitation, [id number] tricuspid regurgitation, right ventricular systolic pressure 45 mmHg suggestive of mild pulmonary hypertension, deconditioning. PLAN: Clinically Cardiac Status Stable. Contnue treatment for COPD, Brochitis, Influenza A, Hypertension as per present therapy. Continue Phyisical Therapy. Rey Burch MD [facility]
--- NOTE | 2017-11-02 09:22 | PN ---
DATE: 11/02/2017 PULMONARY NOTE SUBJECTIVE: The patient appears comfortable this morning. She is not short of breath at rest. OBJECTIVE: VITAL SIGNS: Temperature 98.7, pulse 82, respirations 18, blood pressure 150/66. Oxygen saturation on nasal cannula is 99%. HEENT: Normocephalic, atraumatic. No JVD. CARDIOVASCULAR: Positive S1, S2. No S3 gallop. LUNGS: Mild/less bilateral rhonchi. No wheezing. EXTREMITIES: No cyanosis, clubbing, or edema. Calves are nontender to palpation. GI: Abdomen is soft, nontender and nondistended. Bowel sounds are positive. SKIN: No acute rash. NEUROLOGIC: Exam limited at the present time. IMPRESSION: 1. Acute bronchitis. 2. Advanced chronic obstructive pulmonary disease. 3. Influenza A positivity. 4. Mild anemia. PLAN: The patient appears comfortable this morning. She is not short of breath at rest. She is coughing less. She does state to feeling much better overall. On physical exam, her bronchospasm continues to slowly resolve. In addition, the oxygen saturation on nasal cannula is now 99%. I will continue the current nebulizer treatments and intravenous steroids for now. Clinical status of the patient is significantly improved - compared to the initial presentation. I will discuss the above with Dr. Zimmer. Sebas Delgadillo MD [facility]
[2017-11-02] MEDS: Tiotropium 18 mcg Cap For Inhalation INH SCH (10:23)
--- NOTE | 2017-11-02 14:47 | PN ---
DATE: 11/02/2017 LOCATION: The patient is in room 317, bed 1. REASON FOR CONSULTATION AND FOLLOWUP: Shortness of breath, COPD, hypertension, hyperlipidemia and deconditioning. SUBJECTIVE: The patient is sitting in bed. She says while she is sitting, she denies any shortness of breath, but when she exerts, she gets shortness of breath. She still complains of cough and some time expectoration. Denies any palpitation or chest pain. PHYSICAL EXAMINATION: VITAL SIGNS: Blood pressure 158/63, respirations 18, pulse 74. The patient is afebrile. HEENT: Head is normocephalic. Eyes: Pupils are normal. Conjunctivae normal. Nose and throat normal. NECK: JVP low. Carotids are equal. CARDIOVASCULAR: S1 and S2. LUNGS: Bilateral rhonchi. ABDOMEN: Soft. No tenderness. No organomegaly. EXTREMITIES: No clubbing. No cyanosis. LABORATORY DATA: Labs were done on medical floor, they were reported in our progress notes, written on the medical floor. DIAGNOSES: Exacerbation of chronic obstructive pulmonary disease, bronchitis, positive for influenza A, hypertension, hyperlipidemia, history of peptic ulcer disease. Echo on 10/30/2017 showed normal left ventricular ejection fraction 65%, trace aortic regurgitation, mild mitral regurgitation, [id number] tricuspid regurgitation, right ventricular systolic pressure 45 mmHg, suggestive of mild pulmonary hypertension, and deconditioning. PLAN: The patient getting physical therapy, and she is on meclizine 25 mg daily, aspirin 81 mg daily, clonidine 0.1 mg t.i.d., losartan 100 mg daily, atorvastatin 10 mg daily, gabapentin 300 mg p.o. t.i.d., Solu-Medrol 40 mg IV b.i.d., Spiriva 18 mcg, INH daily, Tamiflu capsule 75 mg p.o. b.i.d., Xopenex hand nebulizer therapy. Continue physical therapy. We will follow with you. Rey Burch MD
--- NOTE | 2017-11-02 19:00 | PN ---
SUBJECTIVE: Patient is 71 years old, seen and examined, doing little better, still has cough, congestion, wheezing, but making very slow progress. PHYSICAL EXAMINATION VITAL SIGNS: Patient is afebrile. Pulse 70, respiration 18, blood pressure 153/82. LUNGS: Bilateral good airflow. No rhonchi or crackle. CHEST: Posteriorly she has bilateral rhonchi. She has diffusely decreased breath sound because of COPD. HEART; S1, S2 audible. ABDOMEN: Soft and nontender. No rebound and no guarding. NEUROLOGIC: The patient is awake, alert, oriented, and communicative. ASSESSMENT: 1. Chronic obstructive pulmonary disease exacerbation. 2. Bronchospasm. 3. Degenerative disk disease. 4. Chronic vertigo. 5. Hypertension. 6. Hyperlipidemia. PLAN: We will continue patient on current medication. She is currently on IV Solu-Medrol and we will continue that. She is on Xanax that will be continued. Her diarrhea has subsided, probably it was because of Zithromax. Since the stool for C. difficile is negative, her vancomycin has been stopped also. Cruz Zimmer MD
[2017-11-03] MEDS: Levalbuterol 0.63 MG/3 ML Inhal Soln UD IH SCH ×4 (02:05→22:17)
[2017-11-03] MEDS: Oxycodone/Acetaminophen 5/325 mg Tab PO PRN ×3 (06:32→19:16)
[2017-11-03] MEDS: MethylPREDNISolone 40 mg Vial IVP SCH ×3 (06:32→21:43)
[2017-11-03] MEDS: Promethazine/Cod 6.25mg-10mg/5ml Syr UD PO PRN (06:32)
[2017-11-03] MEDS: Budesonide 0.5 mg/2 ml Inhal Susp UD IH SCH ×2 (07:22→22:16)
[2017-11-03] MEDS: Arformoterol 15 mcg/2 ml Inh Sol IH SCH ×2 (07:22→22:16)
--- NOTE | 2017-11-03 08:20 | PN ---
DATE: PULMONARY NOTE SUBJECTIVE: The patient appears comfortable this morning. She is not short of breath at rest. OBJECTIVE: VITALS (Last noted in the computer): Temperature is 98.7, pulse 70, respirations 18, blood pressure 153/82. Oxygen saturation on nasal cannula is 98%. HEENT: Normocephalic, atraumatic. No JVD. CARDIOVASCULAR: Positive S1, S2. No S3 gallop. LUNGS: Minimal/less bilateral rhonchi. No wheezing. EXTREMITIES: No clubbing, cyanosis, or edema. Calves are nontender to palpation. GI: Abdomen is soft, nontender, and nondistended. Bowel sounds are positive. SKIN: No acute rash. NEUROLOGIC: Limited at the present time. IMPRESSION: 1. Acute bronchitis. 2. Advanced chronic obstructive pulmonary disease. 3. Influenza A positivity. 4. Mild anemia. PLAN: The patient appears comfortable this morning. She is not short of breath at rest. She does state to feeling much better, overall. On physical exam, her bronchospasm continues to slowly resolve. In addition, the alveolar-arterial gradient also continues to resolve. I will continue the current nebulizer treatments and try decreasing the intravenous steroids this morning. Input by Cardiology is also noted. Clinical status of the patient is significantly improved - compared to the initial presentation. However, the overall status/prognosis for this patient does remain guarded, as she does continue to have advanced lung disease. I will discuss the above with the attending physician. Sebas Delgadillo MD [facility]
[2017-11-03] MEDS: Tiotropium 18 mcg Cap For Inhalation INH SCH (10:14)
--- NOTE | 2017-11-03 19:33 | PN ---
DATE: 11/03/2017 REASON FOR CONSULTATION AND FOLLOWUP: Shortness of breath, COPD, hypertension, hyperlipidemia, deconditioning of the body. Continue care in Transition Care Unit. SUBJECTIVE: The patient denies any chest pain, shortness of breath. Feels lot better, but still feels some shortness of breath. OBJECTIVE GENERAL: Not in apparent distress. Sitting in chair. VITAL SIGNS: As follows; temperature afebrile, heart rate 80, blood pressure 134/73. HEENT: PERRLA. Extraocular muscles intact. NECK: Supple. No carotid bruits or thyromegaly. CHEST: Clear to auscultation. HEART: S1 and S2, regular. ABDOMEN: Soft. EXTREMITIES: Clubbing and cyanosis negative.. LABORATORY DATA: Blood workup not available. IMPRESSION: Deconditioning of the body, exacerbation of chronic obstructive pulmonary disease, bronchitis, influenza, hypertension, hyperlipidemia. The patient has echo on 10/30/2017 showed normal LV ejection fraction 65%, trace aortic regurgitation, mild mitral regurgitation, [id number]-[id number] tricuspid regurgitation, right ventricular systolic pressure 45, suggestive of mild pulmonary hypertension. RECOMMENDATIONS: Continue Physical Therapy. Continue meclizine. Continue aspirin. Continue clonidine. Continue losartan. Continue atorvastatin. CVS status stable. Continue aggressive treatment for COPD. Thank you Dr. Zimmer for providing us the opportunity in taking care of Desire Villanueva. We will follow with you. Rey Rivera MD
[2017-11-04] MEDS ORDERED: Oxycodone/Acetaminophen 5/325 mg Tab PO ONE (01:00)
[2017-11-04] MEDS: Levalbuterol 0.63 MG/3 ML Inhal Soln UD IH SCH ×5 (04:06→21:50)
[2017-11-04] MEDS: Budesonide 0.5 mg/2 ml Inhal Susp UD IH SCH ×2 (07:18→21:50)
[2017-11-04] MEDS: Arformoterol 15 mcg/2 ml Inh Sol IH SCH ×2 (07:18→21:50)
--- NOTE | 2017-11-04 07:51 | PN ---
DATE: PULMONARY NOTE SUBJECTIVE: The patient appears comfortable this morning. She is not short of breath at rest. OBJECTIVE: VITALS (Last noted in the computer): Temperature 98.9, pulse 84, respirations 18, blood pressure 156/82. Oxygen saturation on nasal cannula is 100%. HEENT: Normocephalic, atraumatic. No JVD. CARDIOVASCULAR: Positive S1, S2. No S3 gallop. LUNGS: Minimal/less bilateral rhonchi. No wheezing. EXTREMITIES: No clubbing, cyanosis, or edema. Calves are nontender to palpation. GI: Abdomen is soft, nontender, and nondistended. Bowel sounds are positive. SKIN: No acute rash. NEUROLOGIC: Limited at the present time. IMPRESSION: 1. Acute bronchitis. 2. Advanced chronic obstructive pulmonary disease. 3. Influenza A positivity. 4. Mild anemia. PLAN: The patient appears comfortable this morning. She is not short of breath at rest. She does state to feeling much better overall. On physical exam, her bronchospasm continues to slowly resolve. In addition, the oxygen saturation is now 100% on nasal cannula. I will continue the current nebulizer treatments and current intravenous steroids (decreased yesterday) for now. Input by Cardiology is also noted. Clinical status of the patient is significantly improved - compared to the initial presentation. However, again, due to her longstanding lung disease, the patient's overall status/prognosis does remain guarded. I will discuss the above with the attending physician. Sebas Delgadillo MD MTDD
[2017-11-04] MEDS: Oxycodone/Acetaminophen 5/325 mg Tab PO PRN ×3 (08:19→21:10)
--- NOTE | 2017-11-04 09:01 | PN ---
DATE: 11/04/2017 SUBJECTIVE: The patient has no complaints of any chest pain. No shortness of breath. No headaches or dizziness. PHYSICAL EXAMINATION: VITAL SIGNS: Temperature is 98, pulse is 73, blood pressure is 155/75, and respirations are 20. GENERAL: The patient is lying in bed, flat, comfortable. HEENT: No oral lesion. Anicteric sclerae. Moist mucosa. NECK: No JVD, adenopathy, or thyromegaly. CARDIOVASCULAR: S1 and S2, regular. No murmurs, rubs, or gallops. LUNGS: Clear to auscultation bilaterally. No wheeze, rales, or rhonchi. ABDOMEN: Bowel sounds are positive, soft, nontender and nondistended. EXTREMITIES: No cyanosis, clubbing or edema. ASSESSMENT: 1. Chronic obstructive pulmonary disease, improved. 2. Bronchitis, improved. 3. Degenerative joint disease of back. 4. Chronic vertigo. 5. Hypertension. 6. Dyslipidemia. 7. Flu. PLAN: The patient is on Lipitor for dyslipidemia. She is going to continue with Cozaar for her hypertension. She is on aspirin daily. She is receiving Mirapex. The patient is receiving Percocet for pain. She is receiving Solu-Medrol daily. She is on Tamiflu for her flu. The patient is on Xanax. She is on heart healthy diet. Calderon Reza MD
[2017-11-04] MEDS: MethylPREDNISolone 40 mg Vial IVP SCH ×2 (09:12→21:11)
[2017-11-04] MEDS: Tiotropium 18 mcg Cap For Inhalation INH SCH (09:13)
[2017-11-04] MEDS: Promethazine/Cod 6.25mg-10mg/5ml Syr UD PO PRN ×2 (10:05→13:54)
--- NOTE | 2017-11-04 13:30 | PN ---
DATE: REASON FOR CONSULTATION AND FOLLOWUP: Shortness of breath, COPD, hypertension, hyperlipidemia, and deconditioning of the body. Continue care in Transition Care unit. SUBJECTIVE: The patient denies any chest pain or shortness of breath. Feels better with mild wheezing. PHYSICAL EXAMINATION: GENERAL: Not in apparent distress. Sitting up in the bed. VITAL SIGNS: As follows; temperature afebrile, heart rate 82, and blood pressure 155/75. HEENT: PERRLA. Extraocular muscles intact. NECK: Supple. No carotid bruit or thyromegaly. CHEST: Clear to auscultation. HEART: S1 and S2 regular. ABDOMEN: Soft. EXTREMITIES: Clubbing and cyanosis negative. LABORATORY DATA: Blood workup as follows WBC not available. Blood workup not available. IMPRESSION: Chronic obstructive pulmonary disease exacerbation, deconditioning of the body, bronchitis, influenza, hypertension, and hyperlipidemia. The patient had echocardiography in 10/30/2017 shows left ventricular ejection fraction 65%, trace aortic regurgitation, mild mitral regurgitation, [id number] tricuspid regurgitation, right ventricular systolic pressure of 45, suggestive of mild pulmonary hypertension. RECOMMENDATIONS: Continue aggressive treatment for COPD, continue Losartan, continue clonidine. Continue rehab therapy, physical therapy, and continue baby aspirin. Thank you Dr. Reza, for providing us the opportunity in taking care of the patient, Desire Villanueva. Rey Rivera MD
[2017-11-05] MEDS: Oxycodone/Acetaminophen 5/325 mg Tab PO PRN ×4 (03:18→23:55)
[2017-11-05] MEDS: Promethazine/Cod 6.25mg-10mg/5ml Syr UD PO PRN ×3 (03:18→18:33)
--- NOTE | 2017-11-05 07:01 | PN ---
DATE: 11/05/2017 PULMONARY NOTE SUBJECTIVE: The patient appears comfortable this morning. She is not short of breath at rest. PHYSICAL EXAMINATION: VITAL SIGNS: Temperature is 97.8, pulse 69, respirations 18/20, blood pressure 121/65. Oxygen saturation on nasal cannula is 99%. HEENT: Normocephalic, atraumatic. NECK: No JVD. CARDIOVASCULAR: Positive S1, S2. No S3 gallop. LUNGS: Minimal/less rhonchi bilaterally. No wheezing. EXTREMITIES: No clubbing, cyanosis or edema. Calves are nontender to palpation. GI: Abdomen is soft, nontender and nondistended. Bowel sounds are positive. SKIN: No acute rash. NEUROLOGIC: Exam limited at the present time. IMPRESSION: 1. Acute bronchitis. 2. Advanced chronic obstructive pulmonary disease. 3. Influenza A positivity. 4. Mild anemia. PLAN: The patient appears comfortable this morning. She is not short of breath at rest. She is less dyspneic on exertion. She does state to feeling better overall. On physical exam, her bronchospasm continues to slowly resolve. In addition, the oxygen saturation on nasal cannula is now 99%. I will continue with the current nebulizer treatment and current IV steroids for now. Input by Cardiology (Dr. Rivera) is noted. Clinical status of the patient is significantly improved overall. However, the future status/prognosis does remain very guarded - as she does continue to have advanced lung disease. I will discuss the above with the attending physician. Sebas Delgadillo MD MTDD
[2017-11-05] MEDS: Budesonide 0.5 mg/2 ml Inhal Susp UD IH SCH ×2 (07:29→19:05)
[2017-11-05] MEDS: Levalbuterol 0.63 MG/3 ML Inhal Soln UD IH SCH ×3 (07:29→19:06)
[2017-11-05] MEDS: Arformoterol 15 mcg/2 ml Inh Sol IH SCH ×2 (07:29→19:06)
[2017-11-05] MEDS: MethylPREDNISolone 40 mg Vial IVP SCH ×2 (10:55→22:19)
[2017-11-05] MEDS: Tiotropium 18 mcg Cap For Inhalation INH SCH (10:56)
--- NOTE | 2017-11-05 16:53 | RAD ---
HISTORY: Cough. Portable study 16:19. COMPARISON: 10/30/2017. FINDINGS: LUNGS: No active pulmonary disease. PLEURA: No significant pleural effusion identified, no pneumothorax apparent. CARDIOVASCULAR: No radiographic findings to suggest acute or significant cardiovascular disease. OSSEOUS STRUCTURES: No significant abnormalities. VISUALIZED UPPER ABDOMEN: Normal. OTHER FINDINGS: None. IMPRESSION: No active disease. No significant interval change compared to the prior examination(s).
--- NOTE | 2017-11-05 17:50 | PN ---
DATE: 11/05/2017 REASON FOR CONSULTATION AND FOLLOWUP: Shortness of breath, COPD, hypertension, hyperlipidemia, and deconditioning. SUBJECTIVE: The patient denies chest pain or shortness of breath. She says on exertion, she got some shortness of breath. She has some cough. PHYSICAL EXAMINATION: VITAL SIGNS: Blood pressure 121/65, yesterday was 132/66; respirations 22; pulse 69; temperature 97.8. HEENT: Head is normocephalic. Eyes: Pupils normal. Conjunctivae normal. Nose and throat normal. NECK: JVP low. Carotids are equal. THORAX: AP diameter normal. LUNGS: Rhonchi present. CARDIOVASCULAR: S1, S2. ABDOMEN: Soft. No tenderness. No organomegaly. Bowel sounds normal. EXTREMITIES: No clubbing. No cyanosis. LABORATORY DATA: Labs were done on medical floor and they were reported in our previous notes on medical floor. DIAGNOSES: 1. Exacerbation of chronic obstructive pulmonary disease. 2. Bronchitis. 3. Influenza A. 4. Hypertension. 5. Hyperlipidemia. 6. Echo 10/30/2017 showed normal left ventricular ejection fraction 65%, mild mitral regurgitation, [id number] tricuspid regurgitation, right ventricular systolic pressure of 45 mmHg, suggestive of mild pulmonary hypertension, deconditioning. RECOMMENDATIONS: We will continue physical therapy and continue COPD and bronchitis therapy. The patient on meclizine 25 daily, aspirin 81 daily, Cozaar 100 daily, clonidine 0.2 b.i.d., Lipitor 10 daily, Neurontin 300 mg t.i.d., Solu-Medrol 30 mg IV q.12 hours, Spiriva 18 mcg INH daily, Tamiflu capsule 75 mg p.o. b.i.d., Xopenex p.r.n. We will follow. Rey Burch MD
[2017-11-06] MEDS: Levalbuterol 0.63 MG/3 ML Inhal Soln UD IH SCH ×3 (03:15→23:26)
[2017-11-06] MEDS: Oxycodone/Acetaminophen 5/325 mg Tab PO PRN ×3 (06:39→19:04)
[2017-11-06] MEDS: Promethazine/Cod 6.25mg-10mg/5ml Syr UD PO PRN ×3 (06:40→18:49)
[2017-11-06] MEDS: Arformoterol 15 mcg/2 ml Inh Sol IH SCH ×2 (07:32→23:25)
[2017-11-06] MEDS: Budesonide 0.5 mg/2 ml Inhal Susp UD IH SCH ×2 (07:32→23:25)
--- NOTE | 2017-11-06 08:11 | PN ---
DATE: 11/06/2017 PULMONARY PROGRESS NOTE SUBJECTIVE: The patient appears comfortable this morning. She is not short of breath at rest. PHYSICAL EXAMINATION: VITAL SIGNS: (Last noted in the computer): Temperature is 98.4, pulse is 81, respirations are 18/20, and blood pressure is 127/90. Oxygen saturation on nasal cannula is 99%. HEENT: Normocephalic and atraumatic. No JVD. CARDIOVASCULAR: Positive S1 and S2. No S3 gallop. LUNGS: Minimal/less rhonchi bilaterally. No wheezing. EXTREMITIES: No clubbing, cyanosis or edema. Calves are nontender to palpation. GASTROINTESTINAL: Abdomen is soft, nontender and nondistended. Bowel sounds are positive. SKIN: No acute rash. NEUROLOGIC: Exam is limited at the present time. PERTINENT LABORATORY DATA Chest x-ray was repeated yesterday and reviewed. There is no active disease noted. IMPRESSION 1. Acute bronchitis. 2. Advanced chronic obstructive pulmonary disease. 3. Influenza A positivity. 4. Mild anemia. PLAN: The patient appears comfortable this morning. She is not short of breath at rest. She is much less dyspneic on exertion. She does state to feeling much better overall. On physical exam, her bronchospasm continues to slowly resolve. In addition, the oxygen saturation on nasal cannula is remaining at 98%. I will continue the current nebulizer treatments and decrease the intravenous steroids this morning. Input by Cardiology is noted. Clinical status of the patient is significantly improved. However, again, the future status/prognosis for this patient does remain guarded - as she does continue to have advanced lung disease. I will discuss the above with the attending physician. Sebas Delgadillo MD TONY
[2017-11-06] MEDS: Tiotropium 18 mcg Cap For Inhalation INH SCH (09:40)
[2017-11-06] MEDS: MethylPREDNISolone 40 mg Vial IVP SCH ×2 (09:40→22:28)
--- NOTE | 2017-11-06 15:07 | PN ---
DATE: REASON FOR CONSULTATION AND FOLLOWUP: Shortness of breath, COPD, hypertension, hyperlipidemia, deconditioning of the body. SUBJECTIVE: No chest pain, no shortness of breath, no palpitation. OBJECTIVE: GENERAL: Not in apparent distress. VITAL SIGNS: As follows, temperature afebrile, heart rate 72, blood pressure 131/72. HEENT: PERRLA. Intact. NECK: Supple. No carotid bruits or thyromegaly. CHEST: Clear to auscultation. HEART: S1 and S2, regular. ABDOMEN: Soft. EXTREMITIES: Clubbing and cyanosis negative. LABORATORY DATA: Blood workup not available. IMPRESSION: Exacerbation of chronic obstructive pulmonary disease, bronchitis, influenza, hypertension, hyperlipidemia, echo 10/30/2017 shows normal left ventricular ejection fraction 65%, mild mitral regurgitation, [id number] tricuspid regurgitation, right ventricular systolic pressure is 45 mmHg, suggestive of mild pulmonary hypertension, deconditioning of the body. RECOMMENDATIONS: Continue physical therapy. Continue aggressive treatment for chronic obstructive pulmonary disease. Continue meclizine. Continue Baby aspirin. Continue Cozaar, Neurontin, and clonidine. We will follow with you. CVS status is stable. No further cardiac workup is planned. Rey Rivera MD
[2017-11-07] MEDS: Oxycodone/Acetaminophen 5/325 mg Tab PO PRN ×4 (01:00→21:37)
[2017-11-07] MEDS: Nystatin 100,000 Units/ml Oral Susp 5 ml UD PO SCH ×5 (01:30→21:37)
[2017-11-07] MEDS: Levalbuterol 0.63 MG/3 ML Inhal Soln UD IH SCH ×4 (01:49→20:00)
[2017-11-07] MEDS: Promethazine/Cod 6.25mg-10mg/5ml Syr UD PO PRN ×2 (05:05→15:13)
[2017-11-07] MEDS: Arformoterol 15 mcg/2 ml Inh Sol IH SCH ×2 (07:30→20:00)
[2017-11-07] MEDS: Budesonide 0.5 mg/2 ml Inhal Susp UD IH SCH ×2 (07:30→20:00)
--- NOTE | 2017-11-07 08:12 | PN ---
DATE: 11/07/2017 PULMONARY NOTE SUBJECTIVE: The patient appears comfortable this morning. She is not short of breath at rest. PHYSICAL EXAMINATION: VITAL SIGNS: Last temperature recorded is 98.9, pulse 88, respirations 18/20, last blood pressure recorded 153/72. Oxygen saturation on nasal cannula is 97-99%. HEENT: Normocephalic, atraumatic. NECK: No JVD. CARDIOVASCULAR: Positive S1, S2. No S3 gallop. LUNGS: Minimal rhonchi bilaterally. No wheezing. EXTREMITIES: No clubbing, cyanosis or edema. Calves are nontender to palpation. GI: Abdomen is soft, nontender and nondistended. Bowel sounds are positive. SKIN: No acute rash. NEUROLOGIC: Exam limited at the present time. IMPRESSION: 1. Acute bronchitis. 2. Advanced chronic obstructive pulmonary disease. 3. Influenza A positivity. 4. Mild anemia. PLAN: The patient appears comfortable this morning. She is not short of breath at rest. She is less dyspneic on exertion. She does state to feeling much better overall. On physical exam, mild bronchospasm remains. However, the alveolar-arterial gradient is much less. I will continue with the current nebulizer treatments and low-dose intravenous steroids (decreased yesterday) for now. Clinical status of the patient is significantly improved - compared to the initial presentation. However, again, the future status/prognosis for this patient - with advanced lung disease - does remain guarded. I will discuss the above with Dr. Zimmer. Sebas Delgadillo MD MTDD
[2017-11-07] MEDS: MethylPREDNISolone 40 mg Vial IVP SCH ×2 (09:51→21:38)
[2017-11-07] MEDS: Tiotropium 18 mcg Cap For Inhalation INH SCH (09:51)
--- NOTE | 2017-11-07 13:14 | PN ---
DATE: REASON FOR CONSULTATION AND FOLLOWUP: Shortness of breath, COPD, hypertension, hyperlipidemia, deconditioning of the body. SUBJECTIVE: No chest pain, no shortness of breath, no palpitation. OBJECTIVE: GENERAL: Not in apparent distress. VITAL SIGNS: As follows, temperature afebrile, heart rate 95, blood pressure 150/72. HEENT: PERRLA. Intact. NECK: Supple. No carotid bruits or thyromegaly. CHEST: Clear to auscultation. HEART: S1 and S2 regular. ABDOMEN: Soft. EXTREMITIES: Clubbing and cyanosis negative. DATA: Blood workup not available. IMPRESSION: Acute exacerbation of chronic obstructive pulmonary disease, bronchitis, influenza, hypertension, hyperlipidemia. Echo on 10/30/2017 shows normal left ventricular size, ejection fraction 65%, mild mitral regurgitation, [id number] tricuspid regurgitation, right ventricular systolic pressure of 45 mmHg suggestive of pulmonary hypertension, deconditioning of the body. RECOMMENDATIONS: Continue physical therapy. Continue aggressive treatment for COPD. Continue meclizine. Continue baby aspirin. Continue Cozaar. Continue Neurontin and clonidine. We will follow with you. CVS status is stable. No further cardiac workup is planned. Thank you Dr. Zimmer for providing us the opportunity in taking care of the patient. We will repeat the blood workup tomorrow. The patient is going home today. Rey Rivera MD
[2017-11-08] MEDS: Promethazine/Cod 6.25mg-10mg/5ml Syr UD PO PRN ×3 (00:09→08:46)
[2017-11-08] MEDS: Levalbuterol 0.63 MG/3 ML Inhal Soln UD IH SCH ×3 (01:12→13:36)
--- NOTE | 2017-11-08 01:22 | DS ---
HISTORY OF PRESENT ILLNESS: The patient has no complaints of any chest pain, shortness of breath, or headaches. She states she has been doing well with physical therapy. The patient had a chest x-ray that was done, which shows no active disease. She has COPD that has improved as well. She is to be discharged tomorrow. PHYSICAL EXAMINATION: VITAL SIGNS: Temperature is 98.3, pulse is 78, blood pressure is 118/74, and respirations 16. GENERAL: The patient is lying in bed, flat, comfortable. HEENT: No oral lesion. Anicteric sclerae. Moist mucosa. NECK: No JVD, adenopathy, or thyromegaly. CARDIOVASCULAR: S1 and S2, regular. No murmurs, rubs, or gallops. LUNGS: Clear to auscultation bilaterally. No wheeze, rales, or rhonchi. ABDOMEN: Bowel sounds are positive, soft, nontender and nondistended. EXTREMITIES: No cyanosis, clubbing or edema. ASSESSMENT: 1. Chronic obstructive pulmonary disease, improved. 2. Bronchitis, improved. 3. Degenerative joint disease. 4. Chronic vertigo. 5. Hypertension. 6. Dyslipidemia. 7. Flu. PLAN: The patient is currently on meclizine for dizziness. The patient is going to continue clonidine for hypertension. The patient is on losartan for hypertension as well. She is going to continue on Lipitor for dyslipidemia. The patient is on pramipexole. She is on Neurontin for neuropathy. The patient is on Percocet for pain. She is on Solu-Medrol for her breathing. She is on Xopenex. The patient is on BiPAP at home. She is on a regular diet. The patient is going to be discharged. Follow up with Dr. Zimmer in 1 to 2 weeks. CONDITION: Stable. ACTIVITY: Increase as tolerated. Calderon Reza MD
[2017-11-08] MEDS: Oxycodone/Acetaminophen 5/325 mg Tab PO PRN ×2 (03:15→09:58)
[2017-11-08 07:31] VITALS: O2SAT 98
[2017-11-08] MEDS: Arformoterol 15 mcg/2 ml Inh Sol IH SCH (08:57)
[2017-11-08] MEDS: Budesonide 0.5 mg/2 ml Inhal Susp UD IH SCH (08:57)
[2017-11-08] MEDS: Tiotropium 18 mcg Cap For Inhalation INH SCH (11:00)
[2017-11-08] MEDS: Nystatin 100,000 Units/ml Oral Susp 5 ml UD PO SCH ×2 (11:00→13:50)
--- NOTE | 2017-11-08 11:18 | PN ---
DATE: 11/08/2017 SUBJECTIVE: The patient appears very comfortable this morning. She is not short of breath at rest. PHYSICAL EXAMINATION: VITAL SIGNS: Temperature is 98.3, pulse is 78, respirations 16/18, blood pressure 118/74. Oxygen saturation on nasal cannula is 99%. HEENT: Normocephalic, atraumatic. No JVD. CARDIOVASCULAR: Positive S1, S2. No S3 gallop. LUNGS: Much less/minimal rhonchi. No wheezing. EXTREMITIES: No clubbing, cyanosis, or edema. Calves are nontender to palpation. GI: Abdomen is soft, nontender, and nondistended. Bowel sounds are positive. SKIN: No acute rash. NEUROLOGIC: Limited at the present time. IMPRESSION: 1. Acute bronchitis. 2. Advanced chronic obstructive pulmonary disease. 3. Influenza A positivity. 4. Mild anemia. PLAN: The patient appears very comfortable this morning. She is not short of breath at rest. She is much less dyspneic on exertion. She does state to feeling much better overall. On physical exam, her bronchospasm continues to resolve. In addition, the oxygen saturation on nasal cannula is now 99%. I will continue the current nebulizer treatments and change to oral steroids this morning. Clinical status of the patient is significantly improved - compared to the initial presentation. However, again, the future status/prognosis for this patient does remain guarded - as she does continue to have advanced lung disease. I will discuss the above with the attending physician. Sebas Delgadillo MD MTDD
[2017-11-08 11:29] VITALS: BP 168/83; PULSE 92
[2017-11-08 15:16] VITALS: RESP 20; TEMP 97.4
== END 2017-11-08 17:41 | disposition home or self-care (01) | DRG 192 ==
LOC: TRCU 21:46
PROVIDERS: ADMIT Internal Medicine; ATTEND Internal Medicine
PROC: F07Z9FZ Gait Training/Functional Ambulation Treatment using Assistive, Adaptive, Supportive or Protective Equipment (ICD-10-PCS; principal; 2017-11-01)
PROC: F07M6ZZ Therapeutic Exercise Treatment of Musculoskeletal System - Whole Body (ICD-10-PCS; 2017-11-01)
PROC: F08Z2ZZ Grooming/Personal Hygiene Treatment (ICD-10-PCS; 2017-11-01)
PROC: F08Z1ZZ Dressing Techniques Treatment (ICD-10-PCS; 2017-11-01)
PROC: F08Z0ZZ Bathing/Showering Techniques Treatment (ICD-10-PCS; 2017-11-01)
PROC: F08Z4ZZ Home Management Treatment (ICD-10-PCS; 2017-11-01)
DX: J44.1 Chronic obstructive pulmonary disease with (acute) exacerbation (principal); I27.20 Pulmonary hypertension, unspecified; I08.3 Combined rheumatic disorders of mitral, aortic and tricuspid valves; D64.9 Anemia, unspecified; J44.0 Chronic obstructive pulmonary disease with (acute) lower respiratory infection; E78.5 Hyperlipidemia, unspecified; I10 Essential (primary) hypertension; J10.1 Influenza due to other identified influenza virus with other respiratory manifestations; J20.9 Acute bronchitis, unspecified; M47.9 Spondylosis, unspecified; R09.02 Hypoxemia; Z79.51 Long term (current) use of inhaled steroids; Z79.899 Other long term (current) drug therapy; Z87.11 Personal history of peptic ulcer disease; Z87.891 Personal history of nicotine dependence; Z96.611 Presence of right artificial shoulder joint; Z88.7 Allergy status to serum and vaccine; Z90.49 Acquired absence of other specified parts of digestive tract; M51.36 Other intervertebral disc degeneration, lumbar region; R42 Dizziness and giddiness; R19.7 Diarrhea, unspecified

== ENCOUNTER 2017-11-19 09:53 | Emergency (ER) | payer MEDICARE, OTHER ==
[2017-11-19 10:09] VITALS: BMI 30.9
[2017-11-19] MEDS ORDERED: Albuterol-Ipratrop 3 mg / 0.5 (3 ml) UD IH STA (10:15)
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
[2017-11-19] MEDS ORDERED: Oxycodone/Acetaminophen 5/325 mg Tab PO STA (11:01)
[2017-11-19 11:18] VITALS: RESP 18
[2017-11-19 11:21] VITALS: TEMP 98.3
--- NOTE | 2017-11-19 11:21 | RAD ---
HISTORY: sob COMPARISON: 11/05/2017 FINDINGS: LUNGS: No active pulmonary disease. PLEURA: No significant pleural effusion identified, no pneumothorax apparent. CARDIOVASCULAR: Normal. OSSEOUS STRUCTURES: No significant abnormalities. VISUALIZED UPPER ABDOMEN: Normal. OTHER FINDINGS: None. IMPRESSION: No active disease.
[2017-11-19 11:25] LABS: BASO # 0.02 K/mm3 (0.0-2.0); BASO % 0.1 % (0.0-3.0); EOS # 0.2 (0.0-0.7); EOS % 1.4 % (1.5-5.0); GRAN # 12.29 (1.4-6.5); HEMOGLOBIN 9.8 g/dL (12.0-16.0); LYMPH # 1.3 (1.2-3.4); LYMPH % 8.6 % (22.0-35.0); MEAN CELL VOLUME 94.8 fl (80.0-105.0); MEAN CORPUSCULAR HEMOGLOBIN 29.8 pg (25.0-35.0); MEAN CORPUSCULAR HGB CONC 31.4 g/dl (31.0-37.0); MEAN PLATELET VOLUME 9.4 fl (7.0-11.0); MONO # 0.7 (0.1-0.6); MONO % 4.9 % (1.0-6.0); RBC 3.29 10^6/uL (3.5-6.1); RED CELL DISTRIBUTION WIDTH 14.7 % (11.5-14.5); WHITE BLOOD COUNT 14.5 10^3/ul (4.5-11.0)
[2017-11-19 11:33] LABS: ALB/GLOB RATIO 1.1 (1.1-1.8); ALBUMIN 3.3 g/dL (3.0-4.8); ALT/SGPT 34 U/L (7-56); AST/SGOT 24 U/L (14-36); BLOOD UREA NITROGEN 43 mg/dL (7-21); CALCIUM 8.9 mg/dL (8.4-10.5); GFR AFRICAN-AMERICAN > 60; GFR NON-AFRICAN AMERICAN 55
[2017-11-19 15:45] VITALS: O2SAT 98
[2017-11-19 15:46] VITALS: BP 135/67; PULSE 88
--- NOTE | 2017-11-19 16:30 | CARD ---
APPROVED REPORT EKG Measurement Heart [id number] ID [id number] <Conclusion> Sinus rhythm with short ID Otherwise normal ECG
--- NOTE | 2017-11-20 05:17 | CON ---
DATE: 11/19/2017 HISTORY OF PRESENT ILLNESS: The patient is 71-year-old known to me from multiple previous admissions, came to emergency room because of left-sided chest pain radiating towards her back. She complains of cough, congestion, shortness of breath. Denies any fever or chills. No history of nausea or vomiting. No diarrhea. Because of an increasing shortness of breath and chest pain, the patient's brought her to emergency room for further evaluation. PAST MEDICAL HISTORY: Significant for, 1. Hypertension. 2. Hyperlipemia. 3. Cervical radiculopathy. 4. History of right shoulder surgery, recent. 5. History of COPD. ALLERGIES: THE PATIENT IS ALLERGIC TO FLU VACCINE AND LATEX. MEDICATIONS AT HOME: She is on, 1. Prednisone. 2. Percocet as needed. 3. Valsartan 160/12.5 daily. 4. Simvastatin 10 mg daily. 5. Meclizine 25 daily p.r.n. 6. Neurontin 300 three times a day. 7. Advair 250/50 one puff twice a day, 8. Clonidine 0.1 twice a day. 9. Aspirin 81 daily. 10. Xanax 0.25 daily. SOCIAL HISTORY: She is and lives with her . She was heavy smoker in the past, quit 3 to 4 years ago. PHYSICAL EXAMINATION GENERAL: She is awake, alert, and oriented. Complaining of left-sided chest pain, more so on walking, moving, coughing, and sneezing. VITAL SIGNS: She is afebrile, pulse 81, respirations 18, and blood pressure 103/49. LUNGS: Bilateral fair airflow present with bilateral soft rhonchi. No crackle. HEART: S1 and S2 audible ABDOMEN: Soft and nontender. No rebound. No guarding. NEUROLOGIC: The patient is awake, alert, and oriented and able to communicate. LABORATORY DATA: WBC is 14.5, hemoglobin 9.8, hematocrit 31.2, and platelets 222. Chemistries: Sodium 131, potassium 4.1, chloride 92, CO2 of 30, BUN 43, creatinine 1.0, and blood sugar 129. ASSESSMENT AND PLAN: 1. Noncardiac chest pain, probably musculoskeletal. 2. Asthmatic bronchitis. 3. Chronic obstructive pulmonary disease. 4. Hypertension. 5. Cervical radiculopathy. 6. Lumbosacral sprain. The patient was given multiple nebulizer treatment. Her x-ray of chest is negative. Pulse ox is 96%, so the patient is being discharged today and she will be transferred to subacute rehab. The patient does have sacral decubitus because of her reduced mobility. She will benefit from subacute rehab, so she is being transferred to [facility]. Cruz Zimmer MD
== END 2017-11-19 16:17 | disposition home or self-care (01) ==
LOC: ED 09:53
DX: J44.1 Chronic obstructive pulmonary disease with (acute) exacerbation (principal); I10 Essential (primary) hypertension; E78.5 Hyperlipidemia, unspecified; Z87.891 Personal history of nicotine dependence
CPT/HCPCS: 71045; 80053; 85025; 87040; 93005; 96374; 99285; J2930